=== PATIENT | male | born 1950 | race Caucasian/White ===

== ENCOUNTER 2023-03-18 11:16 | Outpatient (REF) | payer BC, SELFPAY ==
[2023-03-18 17:34] LABS: Hemoglobin A1C 5.1 % (<5.7)
[2023-03-18 17:38] LABS: Calculated LDL 224 mg/dL (<100); Cholesterol 295 mg/dL (<200); HDL Cholesterol 48 mg/dL (40-60); TSH (W/Ref FT4) 1.65 uIU/mL (0.36-3.74); Triglyceride 117 mg/dL (<150)
[2023-03-18 17:52] LABS: Vitamin D 25 Total 14.9 ng/mL (30-100)
== END 2023-03-18 11:17 | disposition home or self-care (01) ==
LOC: NCHCN 11:16
PROVIDERS: Visit Provider Nurse Practitioner Family
DX: R03.0 Elevated blood-pressure reading, without diagnosis of hypertension (principal); R06.00 Dyspnea, unspecified
CPT/HCPCS: 80061; 82306; 83036; 83735; 84443

== ENCOUNTER 2023-04-01 00:56 | Outpatient (CLI) | payer BC, SELFPAY ==
--- NOTE | 2023-04-01 | DI.NM_ITS ---
APPROVED REPORT Conclusion This is a resting myocardial perfusion study. Perfusion appears normal. There is no evidence of jay jay or infarction
== END 2023-04-01 01:16 ==
LOC: DI 00:56
PROVIDERS: Visit Provider Nurse Practitioner Family
DX: R42 Dizziness and giddiness (principal); R06.00 Dyspnea, unspecified; R03.0 Elevated blood-pressure reading, without diagnosis of hypertension; F10.99 Alcohol use, unspecified with unspecified alcohol-induced disorder
CPT/HCPCS: 78451

== ENCOUNTER 2023-04-07 09:42 | Outpatient (CLI) | payer BC, SELFPAY ==
--- NOTE | 2023-04-07 11:20 | DI.US_ITS ---
APPROVED REPORT EXAM: Comprehensive 2D, Doppler, and color-flow Echocardiogram Patient Location: Out-Patient Top Lift Scourer: Rich Grimaldo RDMS, RVT Indications: lightheadedness, dyspnea Other Information Study Quality: Fair Conclusion Normal left ventricular wall thickness and chamber size. Ejection fraction is 55%. There are no seg mental wall motion abnormalities Normal right ventricular size and systolic function Both atria are normal in size Aortic valve is mildly sclerotic and trileaflet without stenosis or regurgitation Estimated right ventricular systolic pressure is 37 mmHg Mildly dilated ascending aorta measuring 3.84 cm Wall motion Left Ventricle The left ventricle is normal size. Left ventricular systolic function is normal There is normal left ventricular wall thickness. There are no segmental wall motion abnormalities There is no ventricular septal defect visualized. LVEF is 55%. Right Ventricle The right ventricle is normal size. Right ventricular systolic function is grossly normal. The RVSP i s 37.4 mmHg. Atria The left atrium size is normal. The right atrium size is normal. The interatrial septum is intact wit h no evidence for an atrial septal defect. Aortic Valve The aortic valve is mildly sclerotic Aortic valve is trileaflet. There is no aortic valvular stenosis . No aortic regurgitation is present. Mitral Valve The mitral valve is normal in structure. No evidence of mitral valve stenosis. Trace mitral regurgita tion. Tricuspid Valve The tricuspid valve is normal in structure. There is no tricuspid valve stenosis. Trace tricuspid reg urgitation. Pulmonic Valve The pulmonary valve is normal in structure. There is no pulmonic valvular stenosis. Mild pulmonic reg urgitation. Great Vessels The aortic root is normal in size. The ascending aorta is mildly dilated. Aortic arch is not well vis ualized. IVC is normal in size and collapses >50% with inspiration. Pericardium There is no pericardial effusion. 2D Dimensions IVSD d PLAX 0.75 cm M: 0.6-1.2 LV Vol A2C d MOD 85.3 mL LVPW d PLAX 0.75 cm M: 0.6 - 1.2 LV Vol A4C d MOD 106.3 mL LVID d PLAX 5.31 cm M: 4.2 - 5.8 LV EF A4C MOD 46.4 % LVDs 4.00 cm M: 2.5 - 4.0 LV EF A2C MOD 50.1 % Ao Root d 3.51 cm M: 3.1 - 3.7 LV EF Biplane MOD 49.1 % Ao Asc Diam d 3.84 cm M: 2.6 - 3.4 SV 50.24 mL LV EF Teichholz 47.5 % SV Index 23.45 mL/m2 LVEF (Gu's) 49.10 % M: 52 - 72 LV Volume 75.04 mL M: 62 - 150 LV Volume Index 35.06 mL/m2 M: 34 - 74 LV Vol Biplane MOD 102.3 mL FS 24.00 % M-Mode TAPSE 2.53 cm (M/F) >1.7 LV Diastology MV E' medial 0.124 (>0.07 m/s) E/A Ratio 1.1 LV E/e MED 7.75 (<14) MV E Vmax 0.96 (0.4-1.3 m/s) MV E' lateral 0.093 (>0.1 m/s) MV A Vmax 0.85 (0.4-1.3 m/s) LV E/e LAT 10.35 (<14) MV E/A Ratio 1.11 MV E/E' medial 7.78 MV E/E' lateral 10.37 Aortic Valve LVOT Area 3.88 cm2 AoV Area Vmax 3.14 cm2 LVOT Vmax 1.20 m/s AoV Area/ BSA (Vmax) 1.46 cm2/m2 LVOT Mean Warner. 0.77 m/s SARA Mean Warner. 2.93 cm2 LVOT Peak Grad 5.8 mmHg SARA Mean Warner. Index 1.37 cm2/m2 LVOT Mean Grad 2.8 mmHg LVOT VTI 0.265 m LVOT Diam s 2.20 cm AoV Vmax 1.49 m/s Velocity Ratio 0.81 AoV Mean Warner. 1.02 m/s AoV Peak Grad 8.8 mmHg LVOT SV 102.90 mL AoV Mean Grad 4.7 mmHg AoV VTI 0.319 m AoV Area VTI 3.23 cm2 AoV Area/ BSA (VTI) 1.51 cm/m2 Mitral Valve MV DT 133 (160-240 msec) MV PHT 38 msec MV Area PHT 5.72 cm2 MV VTI 0.320 m MV Area VTI 3.22 (4.0-6.0 cm2) Pulmonary Valve PV Vmax 1.30 (0.5-1.5 m/s) RVOT Peak Gr. 1.91 mmHg PV Peak Grad 6.8 mmHg RVOT Mean Gr. 1.10 mmHg PV Mean Grad 3.6 mmHg RVOT VTI 0.154 m PV VTI 0.266 m RVOT Vmax 0.69 m/s Tricuspid Valve TR Peak Grad 34.4 mmHg TR Vmax 2.93 m/s RA Pressure 3.00 mmHg RVSP (TR) 37.4 mmHg
== END 2023-04-07 10:02 ==
PROVIDERS: Visit Provider Nurse Practitioner Family
DX: R42 Dizziness and giddiness (principal); R06.00 Dyspnea, unspecified
CPT/HCPCS: 93306

== ENCOUNTER 2023-05-14 15:18 | Outpatient (REF) | payer BC, SELFPAY ==
[2023-05-14 19:04] LABS: ALT 21 U/L (16-63); AST 21 U/L (15-37); Albumin 3.9 g/dL (3.4-5.0); Alkaline Phosphatase 71 U/L (46-116); Anion Gap 9.8 mmol/L (3-11); BUN 27 mg/dL (7-18); Bilirubin, Total 0.5 mg/dL (0.2-1.0); CO2 27.2 mmol/L (21.0-32.0); CREATININE 1.2 mg/dL (0.70-1.30); Calcium 9.2 mg/dL (8.5-10.1); Chloride 101 mmol/L (98-107); Estimated GFR 64.65 (mL/min/1.73m2); Glucose 96 mg/dL (74-106); Potassium 4.5 mmol/L (3.5-5.1); Sodium 138 mmol/L (136-145); Total Protein 7.7 g/dL (6.4-8.2)
== END 2023-05-14 15:19 | disposition home or self-care (01) ==
LOC: NCHCN 15:18
PROVIDERS: Visit Provider Nurse Practitioner Family
DX: I10 Essential (primary) hypertension (principal)
CPT/HCPCS: 80053

== ENCOUNTER → 2023-05-25 00:56 | Outpatient (CLI) | payer BC, SELFPAY ==
--- NOTE | 2023-05-25 | DI.NM_ITS ---
APPROVED REPORT Exam: Exercise Treadmill Patient Location: Out-Patient Room/Bed: Stress Nurse: Jody Wallis RN Ordering Provider:FERMÍN ROSA, Contact Number: [phone] BMI: 32.48 Baseline Rhythm: Sinus Bradycardia Comment: Frequent PAC's and PVC's Indications: Lightheadedness, dyspnea, HTN Medical History Medical History: HLD, HTN, ETOH use, dyspnea, lightheadedness Cardiac Medications: Vitamin D2, rosuvastatin, diazepam, aspirin, naltrexone, atenolol losartan, clor thalidone Allergies: NKA Cardiac Risk Factors: Family hx, HTN, HLD, chewing tobacco Previous Cardiac Procedures: None Pretest Chest Pain Characteristics: 1 chest ache Exercise History: Indeterminate Physical Disabilities: None Lung Sounds: Clear to auscultation Heart Sounds: Regular Stress Test Details Test: Exercise stress testing was performed using a Anirudh protocol. Nuclear Acquisition: Rest Tc-99m/Stress Tc-99m 1 day Rest Isotope: Tc-99m Sestamibi. Dose: 10.5 Date: 05/25/2023 Injection Time: 1105 Stress Isotope: Tc-99m Sestamibi. Dose: 32.0 Date: 05/25/2023 Injection Time: 1240 HR Resting HR Supine: 58 bpm Max Heart Rate (APMHR): 149.640212 bpm Resting HR Standin bpm Target HR (85% APMHR): 126.090624 bpm Max HR Achieved: 143 bpm % of APMHR: 95.97 Recovery HR: 82 bpm HR response to stress: Normal HR response to stress BP Resting BP Supine: 182/90 mmHg Resting BP Standin/80 mmHg Max BP: 190/90 mmHg Recovery BP: 170/90 mmHg BP response to stress: Normal blood pressure response to stress. ECG Resting ECG: Sinus Bradycardia Ectopy: Frequent PAC's and PVC's Stress ECG: Sinus Tachycardia ST Change: No significant ST segment changes noted Arrhythmia: Frequent PAC's and PVC's Recovery ECG: Sinus Rhythm Recovery ST Change: No significant ST segment changes noted Recovery Arrhythmia: Occasional PAC's and PVC's Clinical Reason for Termination: Target HR Achieved, Fatigue Stress Symptoms: 3/10 chest pressure, general fatigue Exercise duration: 04 min59 sec Highest Stage Reached: Stage 2: 2.5 mph at 12% grade. Exercise capacity: 7.03 METs Angina Score: Non-Limiting Noland Treadmill Score: 0.7 Rate Pressure Product: [id number] Stress ECG Conclusion 1. The resting electrocardiogram was within normal limits 2. The patient exercised on a Anirudh protocol completed a workload of 7 METS. Normal heart rate respo nse to exercise. Hypertension was present at rest. The patient achieved 96% of predicted heart rate for age 3. There was no electrocardiographic evidence of myocardial ischemia 4. Atrial and ventricular ectopic beats were noted 5. See MPI report Noland Treadmill Score is 0.7 which is Moderate risk. Stress Test Summary STAGE Time (mins) Speed (mph) Grade (%) HR BP SpO2 SYMPTOMS METS Supine 58 182/90 Standing 75 144/80 1 3 1.7 10 119 178/88 3-4/10 chest pressure, general fatigue 4.5 2 6 2.5 12 143 3-4/10 chest pressure, general fatigue 7 1 min recovery 130 190/90 3-4/10 chest pressure, general fatigue 3 min recovery 85 178/96 6 min recovery 82 170/90 100 All symptoms resolved. MPI Conclusion Myocardial perfusion is normal. There is no ischemia or evidence of prior infarction Ejection fraction is 59%, wall motion is normal Radiologist Interpretation Radiologist agrees with Wax Pot Tender's Interpretation. Radiologist Interpretation by: Riky Munguia MD Interpretation Date/Time: 05/27/2023 18:44:04
== END ==
PROVIDERS: Visit Provider Nurse Practitioner Family
DX: R42 Dizziness and giddiness (principal); R06.00 Dyspnea, unspecified; I10 Essential (primary) hypertension
CPT/HCPCS: 78452; 93017

== ENCOUNTER 2023-10-11 14:58 | Outpatient (REF) | payer BC, SELFPAY ==
[2023-10-11 16:55] LABS: ALT 22 U/L (16-63); AST 18 U/L (15-37); Albumin 3.7 g/dL (3.4-5.0); Alkaline Phosphatase 59 U/L (46-116); Anion Gap 7.5 mmol/L (3-11); BUN 32 mg/dL (7-18); Bilirubin, Total 0.5 mg/dL (0.2-1.0); CO2 27.5 mmol/L (21.0-32.0); CREATININE 1.2 mg/dL (0.70-1.30); Calculated LDL 108 mg/dL (<100); Chloride 104 mmol/L (98-107); Cholesterol 173 mg/dL (<200); Estimated GFR 64.65 (mL/min/1.73m2); Glucose 105 mg/dL (74-106); HDL Cholesterol 49 mg/dL (40-60); Potassium 3.9 mmol/L (3.5-5.1); Sodium 139 mmol/L (136-145); Total Protein 7.5 g/dL (6.4-8.2); Triglyceride 80 mg/dL (<150)
[2023-10-11 17:37] LABS: Vitamin D 25 Total 24.6 ng/mL (30-100)
[2023-10-11 17:49] LABS: Vitamin B12 177 pg/mL (193-986)
== END 2023-10-11 14:59 | disposition home or self-care (01) ==
LOC: NCHCN 14:58
PROVIDERS: PCP Nurse Practitioner Family; Visit Provider Nurse Practitioner Family
DX: Z00.00 Encounter for general adult medical examination without abnormal findings (principal); E55.9 Vitamin D deficiency, unspecified; E78.5 Hyperlipidemia, unspecified; I10 Essential (primary) hypertension; E53.8 Deficiency of other specified B group vitamins
CPT/HCPCS: 80053; 80061; 82306; 82607

== ENCOUNTER 2023-11-01 11:15 | Day surgery (SDC) | payer BC, SELFPAY ==
--- NOTE | 2023-10-31 16:49 | PDOC.DSDIS_ITS ---
Date of service: 11/01/23 Time of Service: 13:07 Discharge Plan Disposition Patient Disposition: Home Condition: Good Discharge Details Reason For Visit: screening colonoscopy after positive cologuard Attending Provider: Ronnie Sepulveda Primary Care Provider: Taryn Nichole Home Meds and New Rx's Prescriptions: Continued aspirin 81 mg tablet,delayed release (DR/EC) 81 mg PO DAILY cholecalciferol (vitamin D3) 50 mcg (2,000 unit) capsule 50 mcg PO DAILY chlorthalidone 25 mg tablet 25 mg PO DAILY rosuvastatin 40 mg tablet 40 mg PO DAILY losartan 50 mg tablet 50 mg PO DAILY vitamin [id number] B1 1,000-100 mg/mL solution IM .weekly Discontinued polyethylene glycol 3350 17 gram/dose powder 238 g PO ONCE Qty: 238 0RF Rx Instructions: take per colonoscopy instructions bisacodyl [Dulcolax (bisacodyl)] 5 mg tablet,delayed release (DR/EC) 5 mg PO ONCE Qty: 4 0RF Rx Instructions: take per colonoscopy instructions Discharge Instructions Instructions: Colorectal Polyps (GEN) Additional Instructions: Santos, we were able to complete your colonoscopy today without any difficulty. There is a large mass in your cecum, which is the first part of your large intestine or colon. It is right where the small intestine connects in. It looks like a large mass of polyps. It is too big to remove with the colonoscope. I did perform several biopsies of it to test for cancer, but ultimately, this will need to come out with surgery. I found 2 other polyps in your colon as well. Both of these were quite small, and I removed them completely. Incidentally, he also have some diverticulosis. These are weak spots in the colon wall that typically accumulate as we age. At the present time, I do not think it has anything to worry about, and I think prioritizing the mass in the cecum is of the most importance. I have taken the liberty of scheduling a follow-up appointment my office on the at 11:45 in the morning. I hope to have the results of the biopsies at that point, we can discuss this in more detail and make a plan together. If you have any questions in the meantime, please do not hesitate to call at any point. 1. If tolerated, consume a soft, low fiber diet for 1-2 days. 2. Do not drive, drink alcohol, operate machinery, make critical decisions, or do activities that require coordination or balance for 24 hours. 3. Because air was put into your colon during the procedure, expelling air from your rectum (passing gas or farting) is normal. 4. You may not have a bowel movement for 1-3 days because of the colonoscopy p rep. This is normal. 5. Go directly to the emergency room if you notice any of the following: Develop chills (warm to touch), or if you have a thermometer and your temperature is above 101 Difficulty breathing or difficultly swallowing Persistent vomiting Severe abdominal pain, other than gas cramps Severe chest pain Black, tarry stools Any bleeding ? exceeding one tablespoon 6. Call your physician if the site where your intravenous was started becomes red, swollen, painful, and warm to touch. 7. Your physician has reviewed your pre-procedure medications. Please continue to take those medications as previously ordered. You will be given specific information/education regarding any changes to your medications before leaving. Activity:: Activity as Tolerated Diet:: As Tolerated Discharge Orders Discharge Orders: Discharge Order (Routine); Ordered 10/31/23 Ordered By: Ronnie Sepulveda DS: Diagnosis Discharge Diagnosis (1) Positive colorectal cancer screening using Cologuard test: Status: Acute Asessment and Plan: Outpatient follow-up and pathology review
--- NOTE | 2023-10-31 16:50 | W.COLOREPORT ---
Date of service: 11/01/23 Time of Service: 13:11 Colonoscopy Report Date of procedure: 11/01/23 Pre-op diagnosis general: positive cologuard test Post-op diagnosis procedure note: other (Diverticulosis, large cecal polypoid mass unresectable by colonoscopy, 0.25 cm polyp at 20 cm, 0.25 cm polyp at 15 cm) Procedure: Colonoscopy Surgeon: Ronnie Sepulveda Anesthesia Type: General:No Airway Estimated blood loss (mL): 10 Pathology: other (Biopsies of cecal polypoid mass, 0.25 cm polyp at 20 cm, 0.25 cm polyp at 15 cm) Complications: None Disposition: same day Indications: Santos is a 73 year old man with a positive cologuard test. He needs a follow up screening colonoscopy Prep: Miralax/Dulcolax Procedure Start Time: 12:42 Procedure End Time: 13:13 Retraction Time: 12 Findings: Polypoid mass in the cecum, diverticulosis, 0.25 cm polyp at 20 cm, 0.25 cm polyp at 15 cm Procedure Description: After the induction of anesthesia, and with the patient in left lateral decubitus position, I began by performing an external anorectal exam.? Perineum and skin were normal, as was the anal verge.? There was no evidence of external hemorrhoids.? Next, I performed a digital rectal exam.? I did not appreciate any abnormal findings.? Next, I advanced a colonoscope into the rectal vault.? I performed retroflexion.? This was normal.? At the upper portion of the rectum at 15 and 20 cm were 2 polyps. Each polyp was less than 0.25 cm. Each polyp was flat, and I removed these both with cold forceps. There was minimal bleeding. Using insufflation, I then advanced the colonoscope beyond the rectal folds and into the sigmoid colon before advancing towards the cecum.? There was sigmoid diverticulosis. The scope was noted to be in the cecum by identification of the ileocecal valve and appendiceal orifice.? Just adjacent to the ileocecal valve was a flat polypoid mass. In its greatest dimension it was probably in excess of 4 cm. This is not amenable to colonoscopic resection. I did perform several biopsies of it using cold forceps in an effort to obtain some tissue diagnosis. There was minimal bleeding. I then began withdrawing the colonoscope using repeated irrigation as necessary for full evaluation of the colonic mucosa. ?Once the scope was withdrawn to the level of the rectum, great care was taken to examine portions of the rectal folds.? Finally, the scope was withdrawn and the patient was brought to the same-day surgery recovery unit as the anesthetic wore off. ?The findings and instructions were shared with the patient prior to discharge. [place] Bowel Prep [place] Bowel Prep Right Colon: 3 Left Colon: 3 Transverse Colon: 3 Total Score: 9
[2023-11-01 11:41] VITALS: BP 120/80; PULSE 89; RESP 18; TEMP 36.4; O2SAT 99
--- NOTE | 2023-11-01 12:13 | ANES.PREOP_ITS ---
General Info Date of Service Date Performed: 11/01/23 Height: 5 ft 8 in Weight: 93.6 kg Body Mass Index (BMI): 31.4 Surgical Procedure: Operation Date: 11/01/23 13:05 Proposed Procedure Side Surgeon tashia Sepulveda MD Meds Allergies and Home Medications Allergies Allergy/AdvReac Type Severity Reaction Status Date / Time naltrexone Allergy Severe Lightheaded Verified 11/01/23 11:40 Home Medication Medication Instructions Recorded aspirin 81 mg tablet,delayed 81 mg PO DAILY 10/26/23 release chlorthalidone 25 mg tablet 25 mg PO DAILY 10/26/23 cholecalciferol (vitamin D3) 50 50 mcg PO DAILY 10/26/23 mcg (2,000 unit) capsule rosuvastatin 40 mg tablet 40 mg PO DAILY 10/26/23 losartan 50 mg tablet 50 mg PO DAILY 10/27/23 vitamin Z02-unyaids B1 1,000 ml IM .weekly 10/27/23 mcg-100 mg/mL injection solution Current Visit Medications: Current Medications Generic Name Dose Route Start Last Admin Trade Name Freq PRN Reason Stop Dose Admin Hyoscyamine Sulfate 0.125 mg 10/31/23 16:51 Hyoscyamine 0.125 Mg Sl/Oral/Chew SL 11/30/23 16:50 DIRECTED PRN Ringer's Solution 1,000 mls @ 80 mls/hr 11/01/23 06:00 IV 11/01/23 23:59 INFUSION TONIO IV Miscellaneous Supplies 1 each 11/01/23 06:00 Iv Access IV 11/01/23 23:59 DIRECTED TONIO Ondansetron HCl 4 mg 10/31/23 16:51 Ondansetron 4 Mg/2 Ml Vial IVP 11/30/23 16:50 Q4H PRN PRN Nausea / Vomiting Sodium Chloride 0 ml 11/01/23 06:00 Normal Saline Flush 10 Ml Syr IV 11/01/23 23:59 PRN PRN Sodium Chloride 0 ml 11/01/23 06:00 Normal Saline 10 Ml Vial IJ 11/01/23 23:59 DIRECTED PRN Sterile Water 0 ml 11/01/23 06:00 Water,Injection,Sterile 10 Ml Vial IJ 11/01/23 23:59 DIRECTED PRN PFSH Active Problems Active Problems: Problem Status Onset Code Positive colorectal cancer screening using Cologuard test ~09/2023 R19.5 Snoring R06.83 Essential hypertension I10 Hyperlipidemia E78.5 Alcohol abuse F10.10 Vitamin D3 deficiency E55.9 Cobalamin deficiency E53.8 Medical History Medical History Dizziness and giddiness Dyspnea Tobacco Smoking/Tobacco Use Status: Current every day Tobacco Type: smokeless tobacco Alcohol Alcohol Intake: current Alcohol intake frequency: 0-2 drinks per day Alcohol type: hard liquor Substance Use Substance use: Never Substance use type: does not use Details: pt chews tobacco daily, denies use today 11/01/23. last chew T-2 Vital Signs and Lab Results Vital Signs Most Recent Vital Signs in EMR: Most Recent Vital Signs Temp Pulse Resp BP Pulse Ox 36.4 C L 89 18 120/80 99 11/01/23 11:41 11/01/23 11:41 11/01/23 11:41 11/01/23 11:41 11/01/23 11:41 Lab Results Blood Type / Crossmatch: 2 No Data to Display Complete Blood Count: 2 No Data to Display Complete Metabolic Panel: 2 Sodium 139 mmol/L (136-145) 10/11/23 09:10 Potassium 3.9 mmol/L (3.5-5.1) 10/11/23 09:10 Chloride 104 mmol/L (98-107) 10/11/23 09:10 Carbon Dioxide 27.5 mmol/L (21.0-32.0) 10/11/23 09:10 BUN 32 mg/dL (7-18) H 10/11/23 09:10 Creatinine 1.2 mg/dL (0.70-1.30) 10/11/23 09:10 Est GFR (CKD-EPI 2020) 64.65 (mL/min/1.73m2) 10/11/23 09:10 Calcium 9.0 mg/dL (8.5-10.1) 10/11/23 09:10 Albumin 3.7 g/dL (3.4-5.0) 10/11/23 09:10 Glucose 105 mg/dL (74-106) 10/11/23 09:10 Liver Function Panel: 2 Alanine Aminotransferase (ALT/SGPT) 22 U/L (16-63) 10/11/23 09: 10 Aspartate Amino Transf (AST/SGOT) 18 U/L (15-37) 10/11/23 09:10 Coagulation Panel: 2 No Data to Display Cardiac Panel: 2 No Data to Display Arterial Blood Gas: 2 No Data to Display Venous Blood Gas: 2 No Data to Display Pancreas Panel: 2 No Data to Display Thyroid Panel: 2 No Data to Display Infectious Disease: 2 No Data to Display Blood Cultures: 2 No Data to Display Toxicology Panel: 2 No Data to Display Imaging and Studies Imaging and Studies Study information below may be from another EMR and interpreted by another provider. Please see original notes in EMR for more complete details. Stress Test Summary: Patient Name: Santos Chavez Unit #: [id number] Loc: Ordering Provider: Taryn Nichole Status: REG I Primary Care Provider: Date of Exam: 05/25/23 Sex: M Admission Date: 05/25/23 : 1950 Age: 73 APPROVED REPORT Exam: Exercise Treadmill Patient Location: Out-Patient Room/Bed: Stress Nurse: Jody Wallis RN Ordering Provider:TARYN NICHOLE, Contact Number: [phone] BMI: 32.48 Baseline Rhythm: Sinus Bradycardia Comment: Frequent PAC's and PVC's Indications: Lightheadedness, dyspnea, HTN Medical History Medical History: HLD, HTN, ETOH use, dyspnea, lightheadedness Cardiac Medications: Vitamin D2, rosuvastatin, diazepam, aspirin, naltrexone, atenolol losartan, clorthalidone Allergies: NKA Cardiac Risk Factors: Family hx, HTN, HLD, chewing tobacco Previous Cardiac Procedures: None Pretest Chest Pain Characteristics: 09/29 chest ache Exercise History: Indeterminate Physical Disabilities: None Lung Sounds: Clear to auscultation Heart Sounds: Regular Stress Test Details Test: Exercise stress testing was performed using a Anirudh protocol. Nuclear Acquisition: Rest Tc-99m/Stress Tc-99m 1 day Rest Isotope: Tc-99m Sestamibi. Dose: 10.5 Date: 05/25/2023 Injection Time: 1105 Stress Isotope: Tc-99m Sestamibi. Dose: 32.0 Date: 05/25/2023 Injection Time: 1240 HR Resting HR Supine: 58 bpmMax Heart Rate (APMHR): 149.636374 bpm Resting HR Standin bpmTarget HR (85% APMHR): 126.332132 bpm Max HR Achieved: 143 bpm % of APMHR: 95.97 Recovery HR: 82 bpm HR response to stress: Normal HR response to stress BP Resting BP Supine: 182/90 mmHg Resting BP Standin/80 mmHg Max BP: 190/90 mmHg Recovery BP: 170/90 mmHg BP response to stress: Normal blood pressure response to stress. ECG Resting ECG: Sinus Bradycardia Ectopy: Frequent PAC's and PVC's Stress ECG: Sinus Tachycardia ST Change: No significant ST segment changes noted Arrhythmia: Frequent PAC's and PVC's Recovery ECG: Sinus Rhythm Recovery ST Change: No significant ST segment changes noted Recovery Arrhythmia: Occasional PAC's and PVC's Clinical Reason for Termination: Target HR Achieved, Fatigue Stress Symptoms: 3/10 chest pressure, general fatigue Exercise duration: 04 min59 sec Highest Stage Reached: Stage 2: 2.5 mph at 12% grade. Exercise capacity: 7.03 METs Angina Score: Non-Limiting Noland Treadmill Score: 0.7 Rate Pressure Product: 09331 Stress ECG Conclusion 1. The resting electrocardiogram was within normal limits 2. The patient exercised on a Anirudh protocol completed a workload of 7 METS. Normal heart rate response to exercise. Hypertension was present at rest. The patient achieved 96% of predicted heart rate for age 3. There was no electrocardiographic evidence of myocardial ischemia 4. Atrial and ventricular ectopic beats were noted 5. See MPI report Noland Treadmill Score is 0.7 which is Moderate risk. Stress Test Summary STAGETime (mins)Speed (mph)Grade (%)[id number] Nnxtzd00604/90 Miubwgge06065/80 131.399061676/883-4/10 chest pressure, general fatigue4.5 321.5662748-4/10 chest pressure, general fatigue7 1 min uswwoxgn445625/903-4/10 chest pressure, general fatigue 3 min tjpfglsg13588/96 6 min qlfmpdke52925/01072Gnq symptoms resolved. MPI Conclusion Myocardial perfusion is normal. There is no ischemia or evidence of prior infarction Ejection fraction is 59%, wall motion is normal Radiologist Interpretation Radiologist agrees with Balancing Machine Set Up Worker's Interpretation. Radiologist Interpretation by: Riky Munguia MD Interpretation Date/Time: 05/27/2023 18:44:04 Ordered By: Taryn Nichole CC: AKIRA OM,MATT Dictated By: Bharti May M.D. 05/25/23 1324 <Electronically signed by Bharti May M.D. in OV> 05/28/23 0805 Transcribed By: Bharti May MD This is privileged, confidential information intended only for the provider named. Any use or distribution by any person other than this provider is strictly prohibited. If you receive this report in error, please notify us immediately at [phone] and return the original report to us at the address above. Thank-you. Echocardiogram Summary: Patient Name: Santos Chavez Unit #: [id number] Loc: DI Ordering Provider: Taryn Nichole Status: [facility] Primary Care Provider: Unknown,Unknown Date of Exam: 04/07/23 Sex: M Admission Date: 04/07/23 : 1950 Age: 73 APPROVED REPORT EXAM: Comprehensive 2D, Doppler, and color-flow Echocardiogram Patient Location: Out-Patient Wound Care Specialist: Rich Grimaldo RDMS, T Indications: lightheadedness, dyspnea Other Information Study Quality: Fair Conclusion Normal left ventricular wall thickness and chamber size. Ejection fraction is 55%. There are no segmental wall motion abnormalities Normal right ventricular size and systolic function Both atria are normal in size Aortic valve is mildly sclerotic and trileaflet without stenosis or regurgitation Estimated right ventricular systolic pressure is 37 mmHg Mildly dilated ascending aorta measuring 3.84 cm Wall motion Left Ventricle The left ventricle is normal size. Left ventricular systolic function is normal There is normal left ventricular wall thickness. There are no segmental wall motion abnormalities There is no ventricular septal defect visualized. LVEF is 55%. Right Ventricle The right ventricle is normal size. Right ventricular systolic function is grossly normal. The RVSP is 37.4 mmHg. Atria The left atrium size is normal. The right atrium size is normal. The interatrial septum is intact with no evidence for an atrial septal defect. Aortic Valve The aortic valve is mildly sclerotic Aortic valve is trileaflet. There is no aortic valvular stenosis. No aortic regurgitation is present. Mitral Valve The mitral valve is normal in structure. No evidence of mitral valve stenosis. Trace mitral regurgitation. Tricuspid Valve The tricuspid valve is normal in structure. There is no tricuspid valve stenosis. Trace tricuspid regurgitation. Pulmonic Valve The pulmonary valve is normal in structure. There is no pulmonic valvular stenosis. Mild pulmonic regurgitation. Great Vessels The aortic root is normal in size. The ascending aorta is mildly dilated. Aortic arch is not well visualized. IVC is normal in size and collapses >50% with inspiration. Pericardium There is no pericardial effusion. 2D Dimensions IVSD d PLAX 0.75 cm M: 0.6-1.2LV Vol A2C d MOD 85.3 mL LVPW d PLAX 0.75 cm M: 0.6 - 1.2LV Vol A4C d MOD 106.3 mL LVID d PLAX 5.31 cm M: 4.2 - 5.8LV EF A4C MOD 46.4 % LVDs 4.00 cm M: 2.5 - 4.0LV EF A2C MOD 50.1 % Ao Root d 3.51 cm M: 3.1 - 3.7LV EF Biplane MOD 49.1 % Ao Asc Diam d 3.84 cm M: 2.6 - 3.4SV50.24 mL LV EF Teichholz 47.5 %SV Index23.45 mL/m2 LVEF (Gu's)49.10 % M: 52 - 72 LV Bhjvxx17.04 mL M: 62 - 150 LV Volume Index35.06 mL/m2 M: 34 - 74 LV Vol Biplane MOD 102.3 mL FS24.00 % M-Mode TAPSE 2.53 cm (M/F) >1.7 LV Diastology MV E' medial0.124 (>0.07 m/s)E/A Ratio 1.1 LV E/e MED7.75 (<14)MV E Vmax 0.96 (0.4-1.3 m/s) MV E' lateral0.093 (>0.1 m/s)MV A Vmax 0.85 (0.4-1.3 m/s) LV E/e LAT10.35 (<14)MV E/A Ratio 1.11 MV E/E' medial 7.78 MV E/E' .37 Aortic Valve LVOT Area3.88 cm2AoV Area Vmax3.14 cm2 LVOT Vmax 1.20 m/sAoV Area/ BSA (Vmax)1.46 cm2/m2 LVOT Mean Warner.0.77 m/sAVA Mean Warner.2.93 cm2 LVOT Peak Grad 5.8 mmHgAVA Mean Warner. Index1.37 cm2/m2 LVOT Mean Grad 2.8 mmHg LVOT VTI0.265 m LVOT Diam s 2.20 cm AoV Vmax1.49 m/s Velocity Ratio 0.81 AoV Mean Warner.1.02 m/s AoV Peak Grad8.8 mmHg LVOT SV 102.90 mL AoV Mean Grad4.7 mmHg AoV VTI0.319 m AoV Area VTI3.23 cm2 AoV Area/ BSA (VTI)1.51 cm/m2 Mitral Valve MV DT 133 (160-240 msec) MV PHT38 msec MV Area PHT 5.72 cm2 MV VTI 0.320 m MV Area VTI 3.22 (4.0-6.0 cm2) Pulmonary Valve PV Vmax 1.30 (0.5-1.5 m/s)RVOT Peak Gr.1.91 mmHg PV Peak Grad 6.8 mmHgRVOT Mean Gr.1.10 mmHg PV Mean Grad 3.6 mmHgRVOT VTI0.154 m PV VTI 0.266 mRVOT Vmax 0.69 m/s Tricuspid Valve TR Peak Grad 34.4 mmHgTR Vmax 2.93 m/s RA Pressure 3.00 mmHg RVSP (TR) 37.4 mmHg Ordered By: Taryn Nichole CC: Dictated By: Bharti May M.D. 04/07/23 1256 <Electronically signed by Bharti May M.D. in OV> 04/08/23 4976 Transcribed By: Bharti May MD This is privileged, confidential information intended only for the provider named. Any use or distribution by any person other than this provider is strictly prohibited. If you receive this report in error, please notify us immediately at [phone] and return the original report to us at the address above. Thank-you. Carotid Artery Summary:: Patient Name: Santos Chavez Unit #: [id number] Loc: Ordering Provider: Taryn Nichole Status: REG CLI Primary Care Provider: Date of Exam: 06/15/23 Sex: M Admission Date: 06/15/23 : 1950 Age: 73 Exam(s) US CAROTID EXAM: US CAROTID CLINICAL HISTORY: LIGHTHEADEDNESS,R42, FAMILY H/O CAROTID ARTERY STENOSIS. TECHNIQUE: Ultrasound carotids performed using grayscale, color-flow, and spectral Doppler imaging. COMPARISON: No exams were available for comparison FINDINGS: RIGHT CAROTID ARTERY: Plaque: Mild calcific plaque is seen in the carotid bulb and proximal right ICA. Velocity elevation: None. LEFT CAROTID ARTERY: Plaque: Mild calcific plaque is seen in the carotid bulb and proximal left ICA. Velocity elevation: None. VERTEBRAL ARTERIES: Antegrade flow. Measurements: R Bulb: 56.9cm/s PS / 15.4cm/s ED R CCA: 86.7cm/s PS / 21.9cm/s ED R ECA: 100.9cm/s PS / 14.1cm/s ED R ICA Prox: 102cm/s PS / 25.4cm/s ED R ICA Mid: 114.8cm/s PS / 25.4cm/s ED R ICA Distal: 92.4cm/s PS /25.2cm/s ED R Vert: 45cm/s PS / 15.3cm/s ED R SVR: 1.3 R DVR: 1.2 L Bulb: 54.4cm/s PS / 13.2cm/s ED L CCA: 93cm/s PS / 20.7cm/s ED L ECA: 81.1cm/s PS / 13.2cm/s ED L ICA Prox: 80.1cm/s PS / 21.7cm/s ED L ICA Mid: 94.7cm/s PS / 29cm/s ED L ICA Distal: 86.9cm/s PS / 26.8cm/s ED L Vert: 47.1cm/s PS / 15.6cm/s ED L SVR: 1 L DVR: 1.4 IMPRESSION: No evidence for hemodynamically significant carotid stenosis. Criteria for Carotid Stenosis: Normal: ICA PSV <125 cm/s no plaque or intimal thickening is visible. <50% stenosis: ICA PSV <125 cm/s and plaque or intimal thickening is visible. 50-69% stenosis: ICA PSV is 125-250 cm/s and plaque is visible. >70% stenosis to near occlusion: ICA PSV >250 cm/s with visible plaque and luminal narrowing. DATA REPOSITORY: Ordered By: Taryn Nichole CC: Dictated By: Yefri Sepulveda M.D. 06/15/23921 <Electronically signed by Yefri Sepulveda M.D. in OV> 06/15/23921 Transcribed By: Yefri Sepulveda This is privileged, confidential information intended only for the provider named. Any use or distribution by any person other than this provider is strictly prohibited. If you receive this report in error, please notify us immediately at [phone] and return the original report to us at the address above. Thank-you. Anesthesia Assessment and Plan Anesthesia History Personal History: No History of Anesthesia Complications Family History: No Family History of Anesthesia Complications Exercise Tolerance Exercise Tolerance: Metabolic Equivalents>4 Pertinent Negatives Pertinent Negatives: No Symptoms of GERD, No Major Pulmonary Symptoms or Complaints and No History of CVA/TIA Cardiac & Pulmonary Exam Cardiac Exam: Normal S1/S2 Heart Sounds Pulmonary Exam: Clear Bilateral Breath Sounds Implantable Cardiac Device Does patient have a Pacemaker or an ICD?: No Airway Exam Known Difficult Airway: No Mallampati Class: 2 Mouth Opening: Normal (> 3cm) Thyromental Distance: Greater than 3 cm Neck Range of Motion: Full ROM Neck Circumference: Normal Teeth Condition: Generalized Poor Dentition and Loose or Chipped Tooth Numberin 1. Missing one per patient 2. Missing one per patient 3. Missing three per patient ASA Classification ASA Score: ASA 2 Emergency Case?: No NPO Status NPO Status: NPO Clears >2 hours, Solids >8 hours Anesthesia Plan Resuscitation Status: Full Code Anesthesia Technique: General Anesthesia Airway Planned: Natural Airway Monitors Used: Standard Monitors Preoperative Comments:: Patient reports regular Alcohol, has not had alcohol for the past two days. Questionable bradycardia this preop visit, did not capture on EKG. Patient now in sinus rhythm.
[2023-11-01] MEDS: Lactated Ringers 1,000 ML 80 ML IV (12:15)
[2023-11-01 12:38] VITALS: BMI 31.4
--- NOTE | 2023-11-01 12:50 | BOWEL_PTH ---
PATIENT: Santos Chavez LOC: [facility] U#:[id number] AGE/SX: 73/M ROOM: RE11/01/[address]: Ronnie Sepulveda MD : 1950 BED: DIS: 11/01/2023 SPEC #: [id number] RECD: 11/01/23 17:53 STATUS: BRIANA RE #: [id number] SUNDAY: 11/01/23 12:[address]: Ronnie Sepulveda DEPT: Surgical Specimen RECD BY: Ondina Ayala ENTERED: 11/01/23 17:53 SP TYPE: Bowel OTHR DR: Taryn Nichole Tissues: 1 - BIOPSY BOWEL 2 - BIOPSY BOWEL 3 - BIOPSY BOWEL Procedures: GROSS AND MICRO LEVEL 4 Comments: [id number]
[2023-11-01 13:05] VITALS: BP 100/69; PULSE 59; RESP 16; TEMP 36.6; O2SAT 97
[2023-11-01 13:30] VITALS: BP 105/74; PULSE 57; RESP 18; TEMP 36.5; O2SAT 100
--- NOTE | 2023-11-01 13:38 | W.ANESPOSTOP ---
Postoperative Evaluation Date, Time and Location Date Performed: 11/01/23 Time Performed: 13:38 Patient Location: Day Surgery Unit Vital Signs Most Recent Imported Vital Signs: Most Recent Vital Signs Temp Pulse Resp BP Pulse Ox 36.5 C 57 L 18 105/74 100 11/01/23 13:30 11/01/23 13:30 11/01/23 13:30 11/01/23 13:30 11/01/23 13:30 Pain Score Most Recent Pain Score: Most Recent Pain Score Pain Level 0 11/01/23 13:30 Assessment Mental Status: Awake (Alert & Oriented to Patient Baseline) Airway and Respiratory Function: Patent airway with normal (patient baseline) respiratory exam Cardiovascular Function: Hemodynamically Stable Hydration Status: Adequately Hydrated Nausea & Vomiting: No Nausea or Vomiting Pain: Pt. Denies Any Pain Peripheral Nerve Block: Patient did not receive a nerve block
== END 2023-11-01 14:04 | disposition home or self-care (01) ==
LOC: SUR 11:15
PROVIDERS: PCP Nurse Practitioner Family; Visit Provider Surgery
PROC: 0DJD8ZZ Inspection of Lower Intestinal Tract, Via Natural or Artificial Opening Endoscopic (ICD-10-PCS; CPT 45378; principal; 2023-11-01 13:00)
DX: K63.5 Polyp of colon (principal); Z12.11 Encounter for screening for malignant neoplasm of colon; K57.30 Diverticulosis of large intestine without perforation or abscess without bleeding; K63.89 Other specified diseases of intestine; R19.5 Other fecal abnormalities; I10 Essential (primary) hypertension; E78.5 Hyperlipidemia, unspecified; F10.11 Alcohol abuse, in remission
CPT/HCPCS: 45380; 88305; J2371; J2704

== ENCOUNTER 2023-12-16 19:04 | Outpatient (REF) | payer BC, SELFPAY ==
[2023-12-16 19:47] LABS: Vitamin B12 943 pg/mL (193-986)
== END 2023-12-16 19:05 | disposition home or self-care (01) ==
LOC: NCHCN 19:04
PROVIDERS: PCP Nurse Practitioner Family; Referring Provider Nurse Practitioner Family; Visit Provider Nurse Practitioner Family
DX: E53.8 Deficiency of other specified B group vitamins (principal)
CPT/HCPCS: 82607

== ENCOUNTER 2023-12-31 06:02 | Inpatient (IN) | payer MEDICARE, BC, SELFPAY ==
--- NOTE | 2023-12-30 15:56 | ROE_ITS ---
Date of service: 12/31/23 Time of Service: 11:38 Operative Note Operative Note DATE OF PROCEDURE: 12/31/23 PRE-OP DIAGNOSIS: Adenomatous colon polyp POST-OP DIAGNOSIS: same PROCEDURE: Laparoscopic right hemicolectomy SURGEON: Ronnie Sepulveda [facility]AT[facility] [employer] SUPERVISOR: Sarah Willis ANESTHESIA TYPE: Local By Surgeon and General LMA/ETT Refer to Anesthesia Record ESTIMATED BLOOD LOSS: 50 PATHOLOGY: other (Right colon) COMPLICATIONS: None Patient was transported to: PACU Patient's condition: stable Indications: Santos is a 73-year-old male who underwent screening colonoscopy and was found to have a adenomatous polyp in the cecum. The size of the polyp precluded colonoscopic resection, and I recommended laparoscopic right hemicolectomy in the case that there might be cancer within the specimen. Findings: No evidence of any type of carcinomatosis or metastatic colon cancer. Normal-appearing ascending colon. Procedure Description: After the induction of general endotracheal anesthesia, and insertion of appropriate intravenous access and intra-arterial blood pressure monitoring, a Mosher urinary catheter was inserted with aseptic technique. Next, I prepped and draped the anterior abdominal wall in the usual fashion. I started with a midline supraumbilical incision. I dissected down to the fascia which was grasped with Wong clamps, and elevated into the operative field. It was opened, 12 mm Fields port was placed in this position, and the peritoneal cavity was then insufflated. A 5 mm 30 degree scope was inserted, and there was no evidence of any kind of injury created upon entry. Peritoneal cavity was assessed. It appeared normal. Liver appeared as anticipated. I did not see any evidence that would support any type of diagnosis of carcinomatosis, and it seems very reasonable to proceed with the planned operation. Next, I placed a 5 mm port in the suprapubic position, as well as the left lower quadrant. This was all done under the direct vision of the laparoscope. The patient was then placed in the Trendelenburg positioning, with the left side down. I divided the obliterated umbilical vein and falciform ligament. This allowed me to retract the greater omentum up over the liver. The small bowel was then swept towards the left side, exposing the underlying mesocolon. The cecum was then grasped, lifted, and retracted slightly laterally. I scored the mesentery and dissected out the ileocolic vessels. These were skeletonized, and divided high to the origin with the LigaSure device between double clips on each side. I dissected down to the sweep of the duodenum, which was gently retracted posteriorly. Dissection was continued towards the right side, and the hepatic flexure, taking great care to elevate the posterior leaflet of the ascending mesocolon off of the retroperitoneum. All retroperitoneal structures were kept in situ. Once the underside of the ascending colon was dissected free, I turned my attention towards dissection and division of the transverse mesocolon. Using the LigaSure, I divided towards the transverse mesocolon. The right colic artery and vein were dissected, skeletonized, and divided close to the origin between double clips on each side with the LigaSure. This dissection was continued up parallel to the middle colic artery to the level of the transverse colon. Next, I divided the transverse colon with a double fire of a Endo KAMI stapler using a purple load. I then turned my attention towards the division of the terminal ileum. Suitable position was identified proximal to the fold of Treves. And I divided the ileum with another fire of the KAMI stapler. Once this was complete, use a LigaSure device to completely mobilize the specimen off of the right lateral sidewall. Once this was complete, we removed the camera, as well as the umbilical port, and open the midline cephalad to the umbilical port extending it several centimeters. A wound protector was then placed, and the specimen was extracted. It was passed off the field labeled right colon. Next, I brought the ileum up into the field. Great care was taken to ensure that the mesentery was appropriately oriented, and there was no bowel twisted across it. Similarly, the transverse colon was delivered up to the field, and the 2 were approximated. It appeared that a antiperistaltic ahry-pn-pugd stapled anastomosis would be most suitable. A small amount of fat was dissected off the antimesenteric side of the transverse colon. The 2 portions of bowel were aligned. I created a colotomy and enterotomy, and matured the anastomosis with an 80 mm KAMI blue stapler. The enterocolostomy appeared healthy, and there was no tension on it. The common entoro-colotomy was then closed with a running 3-0 PDS suture, and interrupted [place] silk sutures on the serosa. The marimar stomosis was then dropped back into the peritoneum. I took a minute to ensure appropriate orientation of the bowel, and then drop to the remaining greater omentum down over the hollow viscera. The midline incision was closed using a running 2-0 PDS suture. The overlying skin and soft tissues were irrigated. A generous field block was established with Exparel and local anesthetic. Deep tissues were closed with interrupted Vicryl stitches, and the midline incision as well as the two 5 mm port sites that were remaining were closed with running subcuticular stitches. Band-Aids were applied, the patient was allowed awaken from anesthesia and transferred to the recovery unit.
--- NOTE | 2023-12-30 15:56 | HPE_ITS ---
Assessment and Plan Assessment and plan (1) Tubular adenoma: Status: Acute Assessment and plan: We reviewed the plan for laparoscopic right hemicolectomy once again today. We reviewed what to expect in terms of the nature of the procedure, and possible complications. He was able to provide informed consent, and we can proceed as planned. History of Present Illness History of Present Illness Chief Complaint: Tubular adenoma of the colon Narrative: Santos is 73 years old. He underwent screening colonoscopy in October of this year, and was diagnosed with a cecal polyp that was too large to be resected colonoscopically. Pathology was consistent with tubular adenoma. He was offered referral to another endoscopist, or laparoscopic right hemicolectomy for definitive treatment. We talked about the risks and benefits of both options, and he elected to proceed with right hemicolectomy. Since his last office visi t, there have been no other major significant changes in his past medical history or interval physical exam. PFSH All Active Problems Tubular adenoma (Acute) Positive colorectal cancer screening using Cologuard test (Acute ~09/2023) On referral Snoring (Acute) Essential hypertension (Acute) Hyperlipidemia (Acute) Alcohol abuse (Chronic) Vitamin D3 deficiency (Acute) Cobalamin deficiency (Acute) Medical History Dizziness and giddiness Dyspnea Surgical History History of colonoscopy (~10/2023) Family History (Updated 10/13/23 @ 13:18 by Kya Keene RN, RN) Father Myocardial infarction Mother A-fib Carotid artery stenosis Social History (Updated 10/13/23 @ 13:19 by Kya Keene RN, RN) Smoking/Tobacco Use Status: Current every day Tobacco Type: smokeless tobacco Smoking risk assessment performed?: Yes Alcohol Intake: current Alcohol Intake frequency: 0-2 drinks per day Alcohol type: hard liquor Drug use: Never Substance use type: does not use Details: pt chews tobacco daily- hasn't used since yesterday 12/30/23 in the afternoon. Housing: house Do you feel safe at home: Yes Do you feel safe in your relationship?: Yes Meds Allergies and Home Medications Allergies Allergy/AdvReac Type Severity Reaction Status Date / Time naltrexone Allergy Severe Lightheaded Verified 12/31/23 06:15 Home Medications Medication Instructions Recorded Confirmed Type aspirin 81 mg tablet,delayed 81 mg PO DAILY 10/26/23 12/29/23 History release chlorthalidone 25 mg tablet 25 mg PO DAILY 10/26/23 12/31/23 History cholecalciferol (vitamin D3) 50 50 mcg PO DAILY 10/26/23 12/29/23 History mcg (2,000 unit) capsule rosuvastatin 40 mg tablet 40 mg PO DAILY 10/26/23 12/31/23 History losartan 50 mg tablet 50 mg PO DAILY 10/27/23 12/31/23 History vitamin X41-hknwtpv B1 1,000 ml IM .weekly 10/27/23 11/10/23 History mcg-100 mg/mL injection solution bisacodyl 5 mg tablet,delayed 5 mg PO ONCE colonscopy bowel prep 11/22/23 12/29/23 Rx release (Dulcolax (bisacodyl)) #8 tabs metronidazole 500 mg tablet 500 mg PO .COMPLEX #8 tabs 11/22/23 12/31/23 Rx neomycin 500 mg tablet 500 mg PO .COMPLEX #8 tabs 11/22/23 12/29/23 Rx ondansetron HCl 8 mg tablet 8 mg PO Q12H #3 tabs 11/22/23 12/31/23 Rx polyethylene glycol 3350 17 238 g PO ONCE colonoscopy prep 11/22/23 12/29/23 Rx gram/dose oral powder #238 grams Exam Const General: cooperative, healthy appearing and not in acute distress Neck Neck: normal visual inspection, no lymphadenopathy and supple Thyroid: thyroid normal Resp Effort & Inspection: normal respiratory effort Auscultation: clear to auscultation bilaterally Cardio Jugular venous pressure: no JVD Rate: regular rate Rhythm: regular rhythm Heart Sounds: S1 normal and S2 normal GI Inspection: normal to inspection Palpation: soft, no guarding, no hernias and nontender Percussion: normal to percussion Auscultation: normal bowel sounds Neuro General: patient alert, patient awake and patient oriented x3 Psych Appearance: grossly normal
[2023-12-31] VITALS (57 sets, daily range): BP systolic 63–158; BP diastolic 34–91; PULSE 48–79; RESP 10–30; TEMP 36.4–36.8; O2SAT 91–100; BMI 31.7
--- NOTE | 2023-12-31 06:33 | W.ANESPRE ---
General Info Date of Service Date Performed: 12/31/23 Height: 5 ft 8 in Weight: 94.7 kg Body Mass Index (BMI): 31.7 Surgical Procedure: Operation Date: 12/31/23 07:50 Proposed Procedure Side Surgeon p Hemicolectomy Laparoscopic Right Ronnie Sepulveda MD Meds Allergies and Home Medications Allergies Allergy/AdvReac Type Severity Reaction Status Date / Time naltrexone Allergy Severe Lightheaded Verified 12/31/23 06:15 Home Medication Medication Instructions Recorded aspirin 81 mg tablet,delayed 81 mg PO DAILY 10/26/23 release chlorthalidone 25 mg tablet 25 mg PO DAILY 10/26/23 cholecalciferol (vitamin D3) 50 50 mcg PO DAILY 10/26/23 mcg (2,000 unit) capsule rosuvastatin 40 mg tablet 40 mg PO DAILY 10/26/23 losartan 50 mg tablet 50 mg PO DAILY 10/27/23 vitamin D60-rwafdvr B1 1,000 ml IM .weekly 10/27/23 mcg-100 mg/mL injection solution bisacodyl 5 mg tablet,delayed 5 mg PO ONCE colonscopy bowel prep 11/22/23 release (Dulcolax (bisacodyl)) #8 tabs metronidazole 500 mg tablet 500 mg PO .COMPLEX #8 tabs 11/22/23 neomycin 500 mg tablet 500 mg PO .COMPLEX #8 tabs 11/22/23 ondansetron HCl 8 mg tablet 8 mg PO Q12H #3 tabs 11/22/23 polyethylene glycol 3350 17 238 g PO ONCE colonoscopy prep 11/22/23 gram/dose oral powder #238 grams Current Visit Medications: Current Medications Generic Name Dose Route Start Last Admin Trade Name Tim PRN Reason Stop Dose Admin Acetaminophen 1,000 mg 12/31/23 06:00 Acetaminophen 500 Mg Tab PO 12/31/23 23:59 PREOP TONIO Celecoxib 200 mg 12/31/23 06:00 Celecoxib 200 Mg Cap PO 12/31/23 23:59 PREOP TONIO Gabapentin 600 mg 12/31/23 06:00 Gabapentin 300 Mg Cap PO 12/31/23 23:59 PREOP TONIO Ringer's Solution 1,000 mls @ 80 mls/hr 12/31/23 06:00 IV 12/31/23 23:59 INFUSION TONIO Cefazolin Sodium/Dextrose 2 gm in 50 mls @ 100 mls/hr 12/31/23 06:00 Ancef Duplex IVPB 12/31/23 23:59 PREOP TONIO IV Miscellaneous Supplies 1 each 12/31/23 06:00 Iv Access IV 12/31/23 23:59 DIRECTED TONIO Sodium Chloride 0 ml 12/31/23 06:00 Normal Saline Flush 10 Ml Syr IV 12/31/23 23:59 PRN PRN Sodium Chloride 0 ml 12/31/23 06:00 Normal Saline 10 Ml Vial IJ 12/31/23 23:59 DIRECTED PRN Sterile Water 0 ml 12/31/23 06:00 Water,Injection,Sterile 10 Ml Vial IJ 12/31/23 23:59 DIRECTED PRN PFSH Active Problems Active Problems: Problem Status Onset Code Tubular adenoma D36.9 Positive colorectal cancer screening using Cologuard test ~09/2023 R19.5 Snoring R06.83 Essential hypertension I10 Hyperlipidemia E78.5 Alcohol abuse F10.10 Vitamin D3 deficiency E55.9 Cobalamin deficiency E53.8 Medical History Medical History Dizziness and giddiness Dyspnea Surgical History Surgical History History of colonoscopy (~10/2023) Tobacco Smoking/Tobacco Use Status: Current every day Tobacco Type: smokeless tobacco Alcohol Alcohol Intake: current Alcohol intake frequency: 0-2 drinks per day Alcohol type: hard liquor Substance Use Substance use: Never Substance use type: does not use Details: pt chews tobacco daily- hasn't used since yesterday 12/30/23 in the afternoon. Vital Signs and Lab Results Vital Signs Most Recent Vital Signs in EMR: Most Recent Vital Signs Temp Pulse Resp BP Pulse Ox 36.6 C 79 18 158/91 H 98 12/31/23 06:22 12/31/23 06:22 12/31/23 06:22 12/31/23 06:22 12/31/23 06:22 Lab Results Blood Type / Crossmatch: No Data to Display Complete Blood Count: No Data to Display Complete Metabolic Panel: No Data to Display Liver Function Panel: No Data to Display Coagulation Panel: No Data to Display Cardiac Panel: No Data to Display Arterial Blood Gas: No Data to Display Venous Blood Gas: No Data to Display Pancreas Panel: No Data to Display Thyroid Panel: No Data to Display Infectious Disease: No Data to Display Blood Cultures: No Data to Display Toxicology Panel: No Data to Display Imaging and Studies Imaging and Studies Study information below may be from another EMR and interpreted by another provider. Please see original notes in EMR for more complete details. Stress Test Summary: Patient Name: Santos Chavez Unit #: [id number] Loc: Ordering Provider: Taryn Nichole Status: REG CLI Primary Care Provider: Date of Exam: 05/25/23 Sex: M Admission Date: 05/25/23 : 1950 Age: 73 APPROVED REPORT Exam: Exercise Treadmill Patient Location: Out-Patient Room/Bed: Stress Nurse: Jody Wallis RN Ordering Provider:TARYN NICHOLE, Contact Number: [phone] BMI: 32.48 Baseline Rhythm: Sinus Bradycardia Comment: Frequent PAC's and PVC's Indications: Lightheadedness, dyspnea, HTN Medical History Medical History: HLD, HTN, ETOH use, dyspnea, lightheadedness Cardiac Medications: Vitamin D2, rosuvastatin, diazepam, aspirin, naltrexone, atenolol losartan, clorthalidone Allergies: NKA Cardiac Risk Factors: Family hx, HTN, HLD, chewing tobacco Previous Cardiac Procedures: None Pretest Chest Pain Characteristics: / chest ache Exercise History: Indeterminate Physical Disabilities: None Lung Sounds: Clear to auscultation Heart Sounds: Regular Stress Test Details Test: Exercise stress testing was performed using a Anirudh protocol. Nuclear Acquisition: Rest Tc-99m/Stress Tc-99m 1 day Rest Isotope: Tc-99m Sestamibi. Dose: 10.5 Date: 05/25/2023 Injection Time: 1105 Stress Isotope: Tc-99m Sestamibi. Dose: 32.0 Date: 05/25/2023 Injection Time: 1240 HR Resting HR Supine: 58 bpmMax Heart Rate (APMHR): 149.869569 bpm Resting HR Standin bpmTarget HR (85% APMHR): 126.149151 bpm Max HR Achieved: 143 bpm % of APMHR: 95.97 Recovery HR: 82 bpm HR response to stress: Normal HR response to stress BP Resting BP Supine: 182/90 mmHg Resting BP Standin/80 mmHg Max BP: 190/90 mmHg Recovery BP: 170/90 mmHg BP response to stress: Normal blood pressure response to stress. ECG Resting ECG: Sinus Bradycardia Ectopy: Frequent PAC's and PVC's Stress ECG: Sinus Tachycardia ST Change: No significant ST segment changes noted Arrhythmia: Frequent PAC's and PVC's Recovery ECG: Sinus Rhythm Recovery ST Change: No significant ST segment changes noted Recovery Arrhythmia: Occasional PAC's and PVC's Clinical Reason for Termination: Target HR Achieved, Fatigue Stress Symptoms: 3/10 chest pressure, general fatigue Exercise duration: 04 min59 sec Highest Stage Reached: Stage 2: 2.5 mph at 12% grade. Exercise capacity: 7.03 METs Angina Score: Non-Limiting Noland Treadmill Score: 0.7 Rate Pressure Product: [id number] Stress ECG Conclusion 1. The resting electrocardiogram was within normal limits 2. The patient exercised on a Anirudh protocol completed a workload of 7 METS. Normal heart rate response to exercise. Hypertension was present at rest. The patient achieved 96% of predicted heart rate for age 3. There was no electrocardiographic evidence of myocardial ischemia 4. Atrial and ventricular ectopic beats were noted 5. See MPI report Noland Treadmill Score is 0.7 which is Moderate risk. Stress Test Summary STAGETime (mins)Speed (mph)Grade (%)[id number] Liwadf04731/90 Bbltkths90642/80 131.210654135/883-4/10 chest pressure, general fatigue4.5 074.3093925-4/10 chest pressure, general fatigue7 1 min jpowhgmx818239/903-4/10 chest pressure, general fatigue 3 min qihgthid71495/96 6 min cilvgvgg43556/15426Aoc symptoms resolved. MPI Conclusion Myocardial perfusion is normal. There is no ischemia or evidence of prior infarction Ejection fraction is 59%, wall motion is normal Radiologist Interpretation Radiologist agrees with Automotive Upholsterer's Interpretation. Radiologist Interpretation by: Riky Munguia MD Interpretation Date/Time: 05/27/2023 18:44:04 Ordered By: Taryn Nichole CC: AKIRA MO,MATT Dictated By: Bharti May M.D. 05/25/23 1324 <Electronically signed by Bharti May M.D. in OV> 05/28/23 0805 Transcribed By: Bharti May MD This is privileged, confidential information intended only for the provider named. Any use or distribution by any person other than this provider is strictly prohibited. If you receive this report in error, please notify us immediately at [phone] and return the original report to us at the address above. Thank-you. Echocardiogram Summary: Patient Name: Santos Chavez Unit #: [id number] Loc: Ordering Provider: Taryn Nichole Status: [facility] Primary Care Provider: Unknown,Unknown Date of Exam: 04/07/23 Sex: M Admission Date: 04/07/23 : 1950 Age: 73 APPROVED REPORT EXAM: Comprehensive 2D, Doppler, and color-flow Echocardiogram Patient Location: Out-Patient Strike Off Machine Operator: Rich Grimaldo RDMS, T Indications: lightheadedness, dyspnea Other Information Study Quality: Fair Conclusion Normal left ventricular wall thickness and chamber size. Ejection fraction is 55%. There are no segmental wall motion abnormalities Normal right ventricular size and systolic function Both atria are normal in size Aortic valve is mildly sclerotic and trileaflet without stenosis or regurgitation Estimated right ventricular systolic pressure is 37 mmHg Mildly dilated ascending aorta measuring 3.84 cm Wall motion Left Ventricle The left ventricle is normal size. Left ventricular systolic function is normal There is normal left ventricular wall thickness. There are no segmental wall motion abnormalities There is no ventricular septal defect visualized. LVEF is 55%. Right Ventricle The right ventricle is normal size. Right ventricular systolic function is grossly normal. The RVSP is 37.4 mmHg. Atria The left atrium size is normal. The right atrium size is normal. The interatrial septum is intact with no evidence for an atrial septal defect. Aortic Valve The aortic valve is mildly sclerotic Aortic valve is trileaflet. There is no aortic valvular stenosis. No aortic regurgitation is present. Mitral Valve The mitral valve is normal in structure. No evidence of mitral valve stenosis. Trace mitral regurgitation. Tricuspid Valve The tricuspid valve is normal in structure. There is no tricuspid valve stenosis. Trace tricuspid regurgitation. Pulmonic Valve The pulmonary valve is normal in structure. There is no pulmonic valvular stenosis. Mild pulmonic regurgitation. Great Vessels The aortic root is normal in size. The ascending aorta is mildly dilated. Aortic arch is not well visualized. IVC is normal in size and collapses >50% with inspiration. Pericardium There is no pericardial effusion. 2D Dimensions IVSD d PLAX 0.75 cm M: 0.6-1.2LV Vol A2C d MOD 85.3 mL LVPW d PLAX 0.75 cm M: 0.6 - 1.2LV Vol A4C d MOD 106.3 mL LVID d PLAX 5.31 cm M: 4.2 - 5.8LV EF A4C MOD 46.4 % LVDs 4.00 cm M: 2.5 - 4.0LV EF A2C MOD 50.1 % Ao Root d 3.51 cm M: 3.1 - 3.7LV EF Biplane MOD 49.1 % Ao Asc Diam d 3.84 cm M: 2.6 - 3.4SV50.24 mL LV EF Teichholz 47.5 %SV Index23.45 mL/m2 LVEF (Gu's)49.10 % M: 52 - 72 LV Tpzwho33.04 mL M: 62 - 150 LV Volume Index35.06 mL/m2 M: 34 - 74 LV Vol Biplane MOD 102.3 mL FS24.00 % M-Mode TAPSE 2.53 cm (M/F) >1.7 LV Diastology MV E' medial0.124 (>0.07 m/s)E/A Ratio 1.1 LV E/e MED7.75 (<14)MV E Vmax 0.96 (0.4-1.3 m/s) MV E' lateral0.093 (>0.1 m/s)MV A Vmax 0.85 (0.4-1.3 m/s) LV E/e LAT10.35 (<14)MV E/A Ratio 1.11 MV E/E' medial 7.78 MV E/E' fqxsbon94.37 Aortic Valve LVOT Area3.88 cm2AoV Area Vmax3.14 cm2 LVOT Vmax 1.20 m/sAoV Area/ BSA (Vmax)1.46 cm2/m2 LVOT Mean Warner.0.77 m/sAVA Mean Warner.2.93 cm2 LVOT Peak Grad 5.8 mmHgAVA Mean Warner. Index1.37 cm2/m2 LVOT Mean Grad 2.8 mmHg LVOT VTI0.265 m LVOT Diam s 2.20 cm AoV Vmax1.49 m/s Velocity Ratio 0.81 AoV Mean Warner.1.02 m/s AoV Peak Grad8.8 mmHg LVOT SV 102.90 mL AoV Mean Grad4.7 mmHg AoV VTI0.319 m AoV Area VTI3.23 cm2 AoV Area/ BSA (VTI)1.51 cm/m2 Mitral Valve MV DT 133 (160-240 msec) MV PHT38 msec MV Area PHT 5.72 cm2 MV VTI 0.320 m MV Area VTI 3.22 (4.0-6.0 cm2) Pulmonary Valve PV Vmax 1.30 (0.5-1.5 m/s)RVOT Peak Gr.1.91 mmHg PV Peak Grad 6.8 mmHgRVOT Mean Gr.1.10 mmHg PV Mean Grad 3.6 mmHgRVOT VTI0.154 m PV VTI 0.266 mRVOT Vmax 0.69 m/s Tricuspid Valve TR Peak Grad 34.4 mmHgTR Vmax 2.93 m/s RA Pressure 3.00 mmHg RVSP (TR) 37.4 mmHg Ordered By: Taryn Nichole CC: Dictated By: Bharti May M.D. 04/07/23 1256 <Electronically signed by Bharti May M.D. in OV> 04/08/23 9210 Transcribed By: Bharti May MD This is privileged, confidential information intended only for the provider named. Any use or distribution by any person other than this provider is strictly prohibited. If you receive this report in error, please notify us immediately at [phone] and return the original report to us at the address above. Thank-you. Carotid Artery Summary:: Patient Name: Santos Chavez Unit #: [id number] Loc: DI Ordering Provider: Taryn Nichole Status: REG CLI Primary Care Provider: Date of Exam: 06/15/23 Sex: M Admission Date: 06/15/23 : 1950 Age: 73 Exam(s) US CAROTID EXAM: US CAROTID CLINICAL HISTORY: LIGHTHEADEDNESS,R42, FAMILY H/O CAROTID ARTERY STENOSIS. TECHNIQUE: Ultrasound carotids performed using grayscale, color-flow, and spectral Doppler imaging. COMPARISON: No exams were available for comparison FINDINGS: RIGHT CAROTID ARTERY: Plaque: Mild calcific plaque is seen in the carotid bulb and proximal right ICA. Velocity elevation: None. LEFT CAROTID ARTERY: Plaque: Mild calcific plaque is seen in the carotid bulb and proximal left ICA. Velocity elevation: None. VERTEBRAL ARTERIES: Antegrade flow. Measurements: R Bulb: 56.9cm/s PS / 15.4cm/s ED R CCA: 86.7cm/s PS / 21.9cm/s ED R ECA: 100.9cm/s PS / 14.1cm/s ED R ICA Prox: 102cm/s PS / 25.4cm/s ED R ICA Mid: 114.8cm/s PS / 25.4cm/s ED R ICA Distal: 92.4cm/s PS /25.2cm/s ED R Vert: 45cm/s PS / 15.3cm/s ED R SVR: 1.3 R DVR: 1.2 L Bulb: 54.4cm/s PS / 13.2cm/s ED L CCA: 93cm/s PS / 20.7cm/s ED L ECA: 81.1cm/s PS / 13.2cm/s ED L ICA Prox: 80.1cm/s PS / 21.7cm/s ED L ICA Mid: 94.7cm/s PS / 29cm/s ED L ICA Distal: 86.9cm/s PS / 26.8cm/s ED L Vert: 47.1cm/s PS / 15.6cm/s ED L SVR: 1 L DVR: 1.4 IMPRESSION: No evidence for hemodynamically significant carotid stenosis. Criteria for Carotid Stenosis: Normal: ICA PSV <125 cm/s no plaque or intimal thickening is visible. <50% stenosis: ICA PSV <125 cm/s and plaque or intimal thickening is visible. 50-69% stenosis: ICA PSV is 125-250 cm/s and plaque is visible. >70% stenosis to near occlusion: ICA PSV >250 cm/s with visible plaque and luminal narrowing. DATA REPOSITORY: Ordered By: Taryn Nichole CC: Dictated By: Yefri Sepulveda M.D. 06/15/23921 <Electronically signed by Yefri Sepulveda M.D. in OV> 06/15/23921 Transcribed By: Yefri Sepulveda This is privileged, confidential information intended only for the provider named. Any use or distribution by any person other than this provider is strictly prohibited. If you receive this report in error, please notify us immediately at [phone] and return the original report to us at the address above. Thank-you. Anesthesia Assessment and Plan Anesthesia History Personal History: No History of Anesthesia Complications Family History: No Family History of Anesthesia Complications Exercise Tolerance Exercise Tolerance: Metabolic Equivalents>4 Pertinent Negatives Pertinent Negatives: No Symptoms of GERD, No Major Cardiovascular Symptoms or Complaints, No Major Pulmonary Symptoms or Complaints and No History of CVA/TIA Cardiac & Pulmonary Exam Cardiac Exam: Normal S1/S2 Heart Sounds Pulmonary Exam: Clear Bilateral Breath Sounds Implantable Cardiac Device Does patient have a Pacemaker or an ICD?: No Airway Exam Known Difficult Airway: No Mallampati Class: 3 Mouth Opening: Normal (> 3cm) Thyromental Distance: Greater than 3 cm Neck Range of Motion: Full ROM Neck Circumference: Normal Teeth Condition: Generalized Poor Dentition and Loose or Chipped Airway Comments: Multiple missing teeth, some chipped and broken ASA Classification ASA Score: ASA 2 Emergency Case?: No NPO Status NPO Status: NPO Clears >2 hours, Solids >8 hours Anesthesia Plan Resuscitation Status: Full Code Anesthesia Technique: General Anesthesia Airway Planned: Endotracheal Tube Monitors Used: Standard Monitors, Arterial Line, SedLine and POCUS (Midline)
[2023-12-31] MEDS: Gabapentin 300 MG CAP 600 MG PO (06:35)
[2023-12-31] MEDS: Celecoxib 200 MG CAP PO (06:35)
[2023-12-31] MEDS: Acetaminophen 500 MG TAB 1000 MG PO (06:36)
[2023-12-31] MEDS: Lactated Ringers 1,000 ML 80 ML IV (06:47)
[2023-12-31] MEDS: ceFAZolin 2 GM/50 ML BAG IVPB (07:42)
[2023-12-31] MEDS: Norepinephrine in D5W 8 MG/250 ML BAG 7.8 MG IV (07:45)
[2023-12-31] MEDS: Bupivacaine 0.25% Pres-Free 30 ML VIAL (08:38)
[2023-12-31] MEDS: Bupivacaine LIPOSOME/PF 133 MG/10 ML VIAL IJ (08:39)
--- NOTE | 2023-12-31 08:59 | W.ANESVAS ---
Arterial Line Placement Date Performed: 12/31/23 Procedure Time: 07:55 Procedure Location: Operating Room Requesting Provider: Ronnie Sepulveda Timeout Performed: Yes Sedation Given (Indicate Dose Given): No Sedation given Patient Mental Status: Performed under general anesthesia Sterility: Hand Hygiene, Surgical Cap, Surgical Mask, Sterile Gloves and Chlorhexidine Laterality: Left Insertion Site: Radial Arterial Line Catheter: 20G Arrow Arterial Line Procedure: Vessel accessed with catheter over needle, Guidewire placed with ease and Guidewire removed Dressing: Tegaderm Applied Ultrasound: Sterile probe cover and gel used Ultrasound Image Saved?: Yes Number of Attempts (See previous attempts in note section): 1 Procedure Tolerated: No Complications and Patient tolerated well Procedure Outcome: Successful Performed By: Pina Gamez Supervised By: Armando Watt Midline Placement Date Performed: 12/31/23 Procedure Time: 08:30 Requesting Provider: Ronnie Sepulveda Procedure Location: Operating Room Sedation Given (Indicate Dose Given): No Sedation given Patient Mental Status: Performed under general anesthesia Sterility: Hand Hygiene, Surgical Cap, Surgical Mask, Sterile Gloves and Chlorhexidine Laterality: Right Insertion Site: Basilic Midline Device: PowerGlide Pro 20G Catheter Length: 10 cm Midline Procedure Procedure: Vessel accessed with catheter over needle, Guidewire placed with ease and Guidewire removed Dressing: Tegaderm Applied Blood Return: Present Flushes: Easily Ultrasound: Sterile probe cover and gel used Ultrasound Image Saved?: Yes Number of Attempts (See previous attempts in note section): 2 Procedure Tolerated: No Complications and Patient tolerated well Procedure Outcome: Successful Performed By: Armando Watt
--- NOTE | 2023-12-31 11:00 | BOWEL_PTH ---
PATIENT: Santos Chavez LOC: ICU U#:[id number] AGE/SX: 73/M ROOM: ICU.219 RE12/31/[address]: Ronnie Sepulveda MD : 1950 BED: A DIS: 01/04/2024 SPEC #: [id number] RECD: 12/31/23 12:47 STATUS: SOUParul REQ #: [id number] SUNDAY: 12/31/23 11:[address]: Ronnie Sepulveda DEPT: Surgical Specimen RECD BY: Ondina Ayala ENTERED: 12/31/23 12:48 SP TYPE: Bowel OTHR DR: Taryn Nichole Tissues: 1 - BOWEL RESECTION(OTHER) Procedures: GROSS AND MICRO LEVEL 5 Comments: [id number]
[2023-12-31] MEDS: fentaNYL 100 MCG/2 ML VIAL IVP ×2 (12:36→13:30)
--- NOTE | 2023-12-31 13:18 | W.ANESPOSTOP ---
Postoperative Evaluation Date, Time and Location Date Performed: 12/31/23 Time Performed: 13:18 Patient Location: PACU Vital Signs Most Recent Imported Vital Signs: Most Recent Vital Signs Temp Pulse Resp BP Pulse Ox 36.5 C 48 L 17 116/52 L 98 12/31/23 13:10 12/31/23 13:10 12/31/23 13:10 12/31/23 13:10 12/31/23 13:10 Pain Score Most Recent Pain Score: Most Recent Pain Score Pain Level 8 12/31/23 12:28 Assessment Mental Status: Awake (Alert & Oriented to Patient Baseline) Airway and Respiratory Function: Patent airway with normal (patient baseline) respiratory exam Cardiovascular Function: Hemodynamically Unstable (See Explanation) and Receiving care as an inpatient Hydration Status: Adequately Hydrated Nausea & Vomiting: No Nausea or Vomiting Pain: Other (pt receiving medication for pain in pacu ) Peripheral Nerve Block: Patient did not receive a nerve block Postoperative Comments:: pt going to in patient bed
[2023-12-31] MEDS: Lactated Ringers 1,000 ML 50 ML IV (15:36)
[2023-12-31] MEDS: Enoxaparin 40 MG/0.4 ML SYR SC (15:39)
[2023-12-31] MEDS: ACETAMINOPHEN 1,000 MG/100 ML BTL 400 MG IVPB ×2 (15:39→23:36)
[2024-01-01] VITALS (102 sets, daily range): BP systolic 65–136; BP diastolic 46–77; PULSE 55–80; RESP 10–27; TEMP 36–36.8; O2SAT 86–99; BMI 31.2
[2024-01-01] MEDS: Ketorolac 15 MG/ML VIAL IVP (03:51)
[2024-01-01] MEDS: Normal Saline 500 ML IV (05:52)
[2024-01-01 06:30] LABS: Abs Immature Grans 0.05 10^3/uL (0.0-0.06); Absolute Basophil Count 0.01 10^3/uL (0.0-0.2); Absolute Lymphocyte Count 0.98 10^3/uL (1.2-3.4); Absolute Monocyte Count 0.75 10^3/uL (0.1-0.8); Absolute Neutrophil Count 8.82 10^3/uL (1.2-6.7); Basophils % 0.1; HGB 10.2 g/dL (13.5-17.5); Immature Grans % 0.5; Lymphocytes % 9.2; MCH 31.4 pg (27.0-33.0); MCV 92 fL (80-95); MPV 11.2 fL (8.0-11.0); Monocytes % 7.1; Neutrophils % 83.1; Platelet Count 163 10^3/uL (130-400); RBC 3.25 10^6/uL (4.36-5.78); RDW-SD 40.5 fL; WBC 10.61 10^3/uL (4.4-10.8)
[2024-01-01 06:45] LABS: ALT 19 U/L (16-63); AST 9 U/L (15-37); Albumin 2.8 g/dL (3.4-5.0); Alkaline Phosphatase 47 U/L (46-116); Anion Gap 11.4 mmol/L (3-11); BUN 27 mg/dL (7-18); Bilirubin, Total 0.5 mg/dL (0.2-1.0); CO2 23.6 mmol/L (21.0-32.0); CREATININE 2.1 mg/dL (0.70-1.30); Calcium 7.7 mg/dL (8.5-10.1); Chloride 102 mmol/L (98-107); Estimated GFR 33.03 (mL/min/1.73m2); Glucose 121 mg/dL (74-106); Sodium 137 mmol/L (136-145); Total Protein 5.6 g/dL (6.4-8.2)
[2024-01-01] MEDS: Tranexamic Acid 1,000 MG/10 ML VIAL 1000 MG IVP (06:55)
[2024-01-01] MEDS: TRANEXAMIC ACID/SOD. CHL. 1,000 MG/100 ML BAG 12.5 MG IV (07:36)
[2024-01-01] MEDS: Ondansetron 4 MG/2 ML VIAL IVP (07:37)
--- NOTE | 2024-01-01 08:46 | W.PM.PROGNOT ---
Date of Service Date of service: 01/01/24 Time of Service: 07:00 Assessment and Plan Assessment and plan (1) Hemorrhage of surgical anastomosis site of digestive tract: Status: Acute Assessment and plan: pt going to OR -Patient received TXA 3 units packed RBCs 1 unit FFP No calcium or magnesium Zosyn on-call to the OR colonsocpy and attempts to control anastomotic bleeding possible laparotomy and revision of incision versus colostomy central line Informed consent is obtained for the procedural (explained in simple layman's terms that the pt and/or family could understand) explaining risks vs benefits and alternatives to the procedure and consequences if we do not do the procedure. Risks include but are not limited to: bleeding, infections, pneumonia, blood clots/DVT/PE, anesthesia (aspiration, damage to teeth/airway/GA/CVA//prolonged mechanical ventilation/PTX/IV infections), damage to bowel, bladder, blood vessels, ureters, Damage to solid organs requiring removal. damage to anastomosis requiring colostomy from anastomosis requiring colostomy/ Wound infections requiring further surgery. ?Scarring and disfigurement. Subsequent bowel obstructions from scar tissue.? Chronic pain or numbness from the incision, or hernia. This document was created with voice activated software and may contain errors. 3 hours was spent in critical care time with this patient prior to going to surgery (2) Alcohol abuse: Status: Chronic (3) Essential hypertension: Status: Acute (4) Hyperlipidemia: Status: Acute (5) Tubular adenoma: Status: Acute (6) Snoring: Status: Acute (7) Hypotension: Status: Resolved Subjective Subjective Interval history since last seen: Patient started having melanotic stools throughout the course of the night. At approximately 6 AM he started to become hemodynamically unstable and was having large quantity melena. Patient did not respond to fluid challenge. TXA and blood were ordered. And massive transfusion protocol was initiated. Patient continued to pass large volume of bloody stool. However his his blood pressure was transient. He received 3 units blood and 1 unit of plasma. He received an initial 1 g of TXA and then 1 additional gram over 8 hours is being infused. Patient is not having any abdominal pain or peritoneal signs. He does not have any abdominal swelling. His incision is clean dry and intact. The bleeding appears to be intraluminal only. Patient complains of feeling weak/dizzy/cold/clammy. He is able to communicate. He is able to protect his airway. He is not having any chest pain or shortness of breath. He has not had any fever or chills. He is not having any vomiting. He has had some nausea and did receive Zofran. The patient was sleeping when the bowel movements started to happen. He is getting some cramping and pain just before he passes stools. He was cold and clammy prior to blood being transfused. Blood and plasma were given via the rapid infuser. Surgery was notified. The decision was made to take the patient down for this and this He see if we could localize the bleeding source. If we cannot control the bleeding and endoscopically. Then we will need to going to do a laparotomy most likely the bleeding is coming from the anastomosis. That would either require revision of the anastomosis and some kind of stoma. Patient is not a smoker. He is not obese. He is not diabetic. He does have a history of hypertension and elevated cholesterol. He does drink 2-3 drinks a day. He had no problems with anesthesia and during the original case. He does have a midline and an A-line in place. Exam Narrative Exam Narrative: No fevers. He is complaining of being cold and clammy. He is making urine but it is concentrated. No jaundice no thrush No chest pain or shortness of breath He does show tachycardia and hypotension. There are no ST-T wave changes. Lungs are clear to auscultation bilaterally Abdomen is soft with appropriate postsurgical pain. He does have bowel sounds. There is no abdominal distention. The incision is clean dry and intact he does not appear to be bleeding internally. She has significant amount dark blood and clot that is being evacuated through the rectum. Objective Last Vital Signs Temp 36.8 C 01/01/24 07:46 Pulse 63 01/01/24 07:46 Resp 18 01/01/24 07:46 BP 129/46 L 01/01/24 07:46 Pulse Ox 95 01/01/24 07:46 Laboratory Results - last 24 hr 01/01/24 05:30 WBC 10.61 RBC 3.25 L Hgb 10.2 L Hct 30.0 L MCV 92 MCH 31.4 MCHC 34.0 RDW 12.0 Plt Count 163 MPV 11.2 H Immature Gran % 0.5 Neutrophils % 83.1 Lymphocytes % 9.2 Monocytes % 7.1 Eosinophils % 0.0 Basophils % 0.1 Nucleated RBC % 0.0 Absolute Neutrophils 8.82 H Absolute Lymphocytes 0.98 L Absolute Monocytes 0.75 Absolute Eosinophils 0.00 Absolute Basophils 0.01 Sodium 137 Potassium 4.0 Chloride 102 Carbon Dioxide 23.6 Anion Gap 11.4 H BUN 27 H Creatinine 2.1 H Est GFR (CKD-EPI 2020) 33.03 Glucose 121 H Calcium 7.7 L Total Bilirubin 0.5 AST 9 L ALT 19 Alkaline Phosphatase 47 Total Protein 5.6 L Albumin 2.8 L Patient ABO/Rh B Positive Antibody Screen NEGATIVE Crossmatch See Detail PAWSS Have you Been Recently Intoxicated or Drunk Within the Last 30 days?: Yes Have you Ever Experienced Previous Episodes of Alcohol Withdrawal?: No Have you ever Experienced Withdrawal Seizures?: No Have you ever Experienced Delirium Tremens(DT)s?: No Have you ever undergone Alcohol Rehabilitation Treatment (i.e, inpt ot outpatient treatment programs)?: No Have you ever Experienced Blackouts?: No Have you ever Combined Alcohol with other Downers within the last 90 days?: No Have you ever Combined Alcohol with any other Substance of Abuse during the last 90 days?: No Positive Blood Alcohol level on Presentation? [PCS.BAL]: No Evidence of Increased Autonomic Activity (i.e. HR>120, tremor, sweating, agitation, nausea)?: No Result: 1 Time Spent with Patient Time Spent with Patient: >50 minutes Time was spent: preparing to see the patient(eg.review tests), obtaining and/or reviewing separately otained hiistory, ordering medications,tests, procedures, referring, communicating with other health reproductive healthcare assistant, indepentently interpreting results, counseling the patient and care coordination
[2024-01-01] MEDS: Normal Saline 250 ML IV (09:06)
[2024-01-01] MEDS: PIPERACILLIN/TAZO 3.375 GM in Normal Saline 50 ML IVPB (09:20)
--- NOTE | 2024-01-01 10:30 | INITIAL_ITS ---
Date of service: 01/01/24 Time of Service: 10:31 Care Management Initial Assmt Initial Assessment REASON FOR HOSPITALIZATION:: Tubular adenoma PREVIOUS FUNCTIONAL STATUS/SOCIAL/FAMILY SUPPORTS:: Santos lives in [place] with his , Jeanna. They have two daughters; Fabby, who lives nearby and is supportive, and Roberto, who lives in [place]. He has five grandchildren. He is retired from working at a [employer]. He is independent at baseline. CURRENT FUNCTIONAL STATUS:: Santos was resting when CM attempted to meet with him. His daughter, Fabby was in the room visiting, and engaged in conversation with CM. She stated that the family is very supportive, and his plan will be to return home once he is medically cleared. CM discussed HH RN for additional support, which she felt he would agree to. Santos woke up briefly during the visit and discussed his plan with CM, also confirming that he has a very supportive family. Per report, he went to the OR today after he was found to be bleeding, and was given three units of blood. He stated that per MD, the surgery went well, and he expects to be inpatient for a few days before being ready for discharge. CM will continue to follow. ADVANCE DIRECTIVES:: Not on file. Has patient been provided with info about the portal/API?: Yes Did the patient sign up for the portal?: No CODE STATUS:: Full Code INSURANCE COVERAGE / FINANCIAL ISSUES:: /BS Federal CURRENT HOME/COMMUNITY SERVICES/EQUIPMENT:: None PRIMARY CARE PHYSICIAN:: Taryn Nichole POTENTIAL DISCHARGE NEEDS:: Evaluations for further needs, follow up appointments. PATIENT/FAMILY EDUCATION NEEDS:: Review discharge instructions and limitations, discussion of self care needs including ask me three. ANTICIPATED BARRIERS TO DISCHARGE:: None identified TRANSPORTATION:: via private vehicle by family PLAN:: Anticipate Santos will return home once medically cleared. His will drive him home via private vehicle when ready. He will follow up with his PCP, surgical services, and his discharge plan of care. CM will continue to follow. PFSH All Active Problems S/P exploratory laparotomy (Acute) Hypotension (Acute) Hemorrhage of surgical anastomosis site of digestive tract (Acute) Tubular adenoma (Acute) Snoring (Acute) Essential hypertension (Acute) Hyperlipidemia (Acute) Alcohol abuse (Chronic) Medical History (Updated 01/01/24 @ 12:35 by Gayle Chilel DO) Cobalamin deficiency Vitamin D3 deficiency Positive colorectal cancer screening using Cologuard test (~09/2023) On referral Dizziness and giddiness Dyspnea Surgical History (Updated 01/01/24 @ 12:35 by Gayle Chilel DO) S/P right hemicolectomy History of colonoscopy (~10/2023) Family History (Updated 10/13/23 @ 13:18 by Kya Keene RN, RN) Father Myocardial infarction Mother A-fib Carotid artery stenosis Social History (Updated 10/13/23 @ 13:19 by Kya Keene RN, RN) Smoking/Tobacco Use Status: Current every day Tobacco Type: smokeless tobacco Smoking risk assessment performed?: Yes Alcohol Intake: current Alcohol Intake frequency: 0-2 drinks per day Alcohol type: hard liquor Drug use: Never Substance use type: does not use Details: pt chews tobacco daily- hasn't used since yesterday 12/30/23 in the afternoon. Housing: house Do you feel safe at home: Yes Do you feel safe in your relationship?: Yes SDOH(Care Management) Screening Will the Patient Participate in the Screening?: Yes Do you worry about having a steady place to live?: no Problems where you live: no known problems In the past 12 months, have you had to go without electric, gas, oil or water in your home?: no Have you or anyone in your house had to go without enough food to eat?: no Has lack of transportation kept you from medical appointments or from doing things needed for daily living?: no Has anyone in your support network made you feel unsafe for any reason?: no
[2024-01-01] MEDS: Bupivacaine 0.5% Pres-Free 30 ML VIAL (10:51)
--- NOTE | 2024-01-01 10:52 | W.ANESPRE ---
General Info Date of Service Date Performed: 01/01/24 Height: 5 ft 9 in Weight: 96 kg Body Mass Index (BMI): 31.2 Surgical Procedure: Operation Date: 12/31/23 07:50 Proposed Procedure Side Surgeon p Hemicolectomy Laparoscopic Right Ronnie Sepulveda MD Actual Procedure Side Surgeon p Hemicolectomy Laparoscopic Right Ronnie Sepulveda MD Pre-Op Diagnosis Post-Op Diagnosis TUBULAR ADENOMA TUBULAR ADENOMA Operation Date: 01/01/24 08:55 Proposed Procedure Side Surgeon p Colonoscopy Not Applicable Gayle Chilel DO s Exploratory Laparotomy Not Applicable Gayle Chilel DO Actual Procedure Side Surgeon p Colonoscopy Not Applicable Gayle Chilel DO s Exploratory Laparotomy Not Applicable Gayle Chilel DO Pre-Op Diagnosis Post-Op Diagnosis RECTAL BLEEDING S/P ANASTAMOSIS Meds Allergies and Home Medications Allergies Allergy/AdvReac Type Severity Reaction Status Date / Time naltrexone Allergy Severe Lightheaded Verified 12/31/23 06:15 Home Medication Medication Instructions Recorded aspirin 81 mg tablet,delayed 81 mg PO DAILY 10/26/23 release chlorthalidone 25 mg tablet 25 mg PO DAILY 10/26/23 cholecalciferol (vitamin D3) 50 50 mcg PO DAILY 10/26/23 mcg (2,000 unit) capsule rosuvastatin 40 mg tablet 40 mg PO DAILY 10/26/23 losartan 50 mg tablet 50 mg PO DAILY 10/27/23 vitamin [id number]-[id number] B1 1,000 ml IM .weekly 10/27/23 mcg-100 mg/mL injection solution bisacodyl 5 mg tablet,delayed 5 mg PO ONCE colonscopy bowel prep 11/22/23 release (Dulcolax (bisacodyl)) #8 tabs metronidazole 500 mg tablet 500 mg PO .COMPLEX #8 tabs 11/22/23 neomycin 500 mg tablet 500 mg PO .COMPLEX #8 tabs 11/22/23 ondansetron HCl 8 mg tablet 8 mg PO Q12H #3 tabs 11/22/23 polyethylene glycol 3350 17 238 g PO ONCE colonoscopy prep 11/22/23 gram/dose oral powder #238 grams Current Visit Medications: Current Medications Generic Name Dose Route Start Last Admin Trade Name Freq PRN Reason Stop Dose Admin Chlorthalidone 25 mg 01/01/24 08:30 01/01/24 07:43 Chlorthalidone 25 Mg Tab PO Not Given DAILY TONIO Cholecalciferol 2,000 units 01/01/24 08:30 01/01/24 07:43 Cholecalciferol (Vitamin D3) 1,000 Unit Tab PO Not Given DAILY [facility] Hydromorphone HCl 1 mg 12/31/23 14:21 Hydromorphone 2 Mg/Ml Syr IVP Q6H PRN PRN Norepinephrine Bitartrate 8 mg in 250 mls @ 7.5 mls/hr 12/31/23 12:30 12/31/23 13:36 IV 0 mcg/min INFUSION TONIO 0 mls/hr Titration Protocol 4 MCG/MIN Acetaminophen 1,000 mg in 100 mls @ 400 mls/hr 12/31/23 14:00 01/01/24 07:42 Ofirmev IVPB Not Given Q8H [facility] Ringer's Solution 1,000 mls @ 50 mls/hr 12/31/23 15:30 01/01/24 07:36 IV 0 mls/hr INFUSION [facility] Infusion Tranexamic Acid/Sodium Chloride 1,000 mg in 100 mls @ 12.5 mls/hr 01/01/24 08:00 01/01/24 09:29 IV Infused INFUSION [facility] Infusion Octreotide Acetate 250 mcg/ 250 mls @ 50 mls/hr 01/01/24 07:45 Sodium Chloride IV INFUSION TONIO Protocol 50 MCG/HR IV Miscellaneous Supplies 1 each 12/31/23 14:21 Iv Access IV DIRECTED [facility] Losartan Potassium 50 mg 01/01/24 08:30 01/01/24 07:43 Losartan 50 Mg Tab PO Not Given DAILY [facility] Ondansetron HCl 4 mg 12/31/23 14:21 01/01/24 07:37 Ondansetron 4 Mg/2 Ml Vial IVP 4 mg Q4H PRN PRN Administration Psyllium Hydrophilic Mucilloid 1 each 01/01/24 08:30 01/01/24 07:43 Psyllium Pkt PO Not Given DAILY [facility] Rosuvastatin Calcium 40 mg 01/01/24 08:30 01/01/24 07:43 Rosuvastatin 20 Mg Tab PO Not Given DAILY [facility] Simethicone 80 mg 12/31/23 14:21 Simethicone 80 Mg Chew PO Q4H PRN PRN Sodium Chloride 0 ml 12/31/23 14:21 Normal Saline Flush 10 Ml Syr IVP PRN PRN Sodium Chloride 0 ml 04/12/24 20:00 01/01/24 07:44 Normal Saline Flush 10 Ml Syr IVP Not Given BID TONIO Sodium Chloride 0 ml 12/31/23 14:21 Normal Saline 10 Ml Vial IJ DIRECTED PRN PFSH Active Problems Active Problems: Problem Status Onset Code Hypotension I95.9 Hemorrhage of surgical anastomosis site of digestive tract K91.840 Tubular adenoma D36.9 Positive colorectal cancer screening using Cologuard test ~09/2023 R19.5 Snoring R06.83 Essential hypertension I10 Hyperlipidemia E78.5 Alcohol abuse F10.10 Vitamin D3 deficiency E55.9 Cobalamin deficiency E53.8 Medical History Medical History (Updated 01/01/24 @ 08:47 by Gayle Chilel DO) Dizziness and giddiness Dyspnea Surgical History Surgical History History of colonoscopy (~10/2023) Tobacco Smoking/Tobacco Use Status: Current every day Tobacco Type: smokeless tobacco Alcohol Alcohol Intake: current Alcohol intake frequency: 0-2 drinks per day Alcohol type: hard liquor Substance Use Substance use: Never Substance use type: does not use Details: pt chews tobacco daily- hasn't used since yesterday 12/30/23 in the afternoon. Vital Signs and Lab Results Vital Signs Most Recent Vital Signs in EMR: Most Recent Vital Signs Temp Pulse Resp BP Pulse Ox 36.8 C 63 18 129/46 L 95 01/01/24 07:46 01/01/24 07:46 01/01/24 07:46 01/01/24 07:46 01/01/24 07:46 Lab Results 01/01/24 05:30 01/01/24 05:30 Blood Type / Crossmatch: Patient ABO/Rh B Positive 01/01/24 Antibody Screen NEGATIVE 01/01/24 Crossmatch See Detail 01/01/24 Complete Blood Count: White Blood Count 10.61 10^3/uL (4.4-10.8) 01/01/24 05:30 Red Blood Count 3.25 10^6/uL (4.36-5.78) L 01/01/24 05:30 Hemoglobin 10.2 g/dL (13.5-17.5) L 01/01/24 05:30 Hematocrit 30.0 % (40.0-50.0) L 01/01/24 05:30 Platelet Count 163 10^3/uL (130-400) 01/01/24 05:30 Complete Metabolic Panel: Sodium 137 mmol/L (136-145) 01/01/24 05:30 Potassium 4.0 mmol/L (3.5-5.1) 01/01/24 05:30 Chloride 102 mmol/L (98-107) 01/01/24 05:30 Carbon Dioxide 23.6 mmol/L (21.0-32.0) 01/01/24 05:30 BUN 27 mg/dL (7-18) H 01/01/24 05:30 Creatinine 2.1 mg/dL (0.70-1.30) H 01/01/24 05:30 Est GFR (CKD-EPI 2020) 33.03 (mL/min/1.73m2) 01/01/24 05:30 Calcium 7.7 mg/dL (8.5-10.1) L 01/01/24 05:30 Albumin 2.8 g/dL (3.4-5.0) L 01/01/24 05:30 Glucose 121 mg/dL (74-106) H 01/01/24 05:30 Liver Function Panel: Alanine Aminotransferase (ALT/SGPT) 19 U/L (16-63) 01/01/24 05:30 Aspartate Amino Transf (AST/SGOT) 9 U/L (15-37) L 01/01/24 05:30 Coagulation Panel: No Data to Display Cardiac Panel: No Data to Display Arterial Blood Gas: No Data to Display Venous Blood Gas: No Data to Display Pancreas Panel: No Data to Display Thyroid Panel: No Data to Display Infectious Disease: No Data to Display Blood Cultures: No Data to Display Toxicology Panel: No Data to Display Imaging and Studies Imaging and Studies Study information below may be from another EMR and interpreted by another provider. Please see original notes in EMR for more complete details. Stress Test Summary: Patient Name: Santos Chavez Unit #: [id number] Loc: DI Ordering Provider: Taryn Nichole Status: REG CLI Primary Care Provider: Date of Exam: 05/25/23 Sex: M Admission Date: 05/25/23 : 1950 Age: 73 APPROVED REPORT Exam: Exercise Treadmill Patient Location: Out-Patient Room/Bed: Stress Nurse: Jody Wallis RN Ordering Provider:TARYN NICHOLE, Contact Number: [phone] BMI: 32.48 Baseline Rhythm: Sinus Bradycardia Comment: Frequent PAC's and PVC's Indications: Lightheadedness, dyspnea, HTN Medical History Medical History: HLD, HTN, ETOH use, dyspnea, lightheadedness Cardiac Medications: Vitamin D2, rosuvastatin, diazepam, aspirin, naltrexone, atenolol losartan, clorthalidone Allergies: NKA Cardiac Risk Factors: Family hx, HTN, HLD, chewing tobacco Previous Cardiac Procedures: None Pretest Chest Pain Characteristics: 1/10 chest ache Exercise History: Indeterminate Physical Disabilities: None Lung Sounds: Clear to auscultation Heart Sounds: Regular Stress Test Details Test: Exercise stress testing was performed using a Anirudh protocol. Nuclear Acquisition: Rest Tc-99m/Stress Tc-99m 1 day Rest Isotope: Tc-99m Sestamibi. Dose: 10.5 Date: 05/25/2023 Injection Time: 1105 Stress Isotope: Tc-99m Sestamibi. Dose: 32.0 Date: 05/25/2023 Injection Time: 1240 HR Resting HR Supine: 58 bpmMax Heart Rate (APMHR): 149.030133 bpm Resting HR Standin bpmTarget HR (85% APMHR): 126.441585 bpm Max HR Achieved: 143 bpm % of APMHR: 95.97 Recovery HR: 82 bpm HR response to stress: Normal HR response to stress BP Resting BP Supine: 182/90 mmHg Resting BP Standin/80 mmHg Max BP: 190/90 mmHg Recovery BP: 170/90 mmHg BP response to stress: Normal blood pressure response to stress. ECG Resting ECG: Sinus Bradycardia Ectopy: Frequent PAC's and PVC's Stress ECG: Sinus Tachycardia ST Change: No significant ST segment changes noted Arrhythmia: Frequent PAC's and PVC's Recovery ECG: Sinus Rhythm Recovery ST Change: No significant ST segment changes noted Recovery Arrhythmia: Occasional PAC's and PVC's Clinical Reason for Termination: Target HR Achieved, Fatigue Stress Symptoms: 3/10 chest pressure, general fatigue Exercise duration: 04 min59 sec Highest Stage Reached: Stage 2: 2.5 mph at 12% grade. Exercise capacity: 7.03 METs Angina Score: Non-Limiting Noland Treadmill Score: 0.7 Rate Pressure Product: 06704 Stress ECG Conclusion 1. The resting electrocardiogram was within normal limits 2. The patient exercised on a Anirudh protocol completed a workload of 7 METS. Normal heart rate response to exercise. Hypertension was present at rest. The patient achieved 96% of predicted heart rate for age 3. There was no electrocardiographic evidence of myocardial ischemia 4. Atrial and ventricular ectopic beats were noted 5. See MPI report Noland Treadmill Score is 0.7 which is Moderate risk. Stress Test Summary STAGETime (mins)Speed (mph)Grade (%)[id number] Thwriu39239/90 Jbtciqzz77871/80 131.328619634/883-4/10 chest pressure, general fatigue4.5 588.4027922-4/10 chest pressure, general fatigue7 1 min ajsfrtow242755/903-4/10 chest pressure, general fatigue 3 min ecgptzvc02508/96 6 min obsxkyxy28180/78577Jrd symptoms resolved. MPI Conclusion Myocardial perfusion is normal. There is no ischemia or evidence of prior infarction Ejection fraction is 59%, wall motion is normal Radiologist Interpretation Radiologist agrees with Middleware Consultant's Interpretation. Radiologist Interpretation by: Riky Munguia MD Interpretation Date/Time: 05/27/2023 18:44:04 Ordered By: Taryn Nichole CC: AKIRA MO,LORENA BOBO Dictated By: Lorena May M.D. 05/25/23 1324 <Electronically signed by Lorena May M.D. in OV> 05/28/23 0805 Transcribed By: Lorena May MD This is privileged, confidential information intended only for the provider named. Any use or distribution by any person other than this provider is strictly prohibited. If you receive this report in error, please notify us immediately at [phone] and return the original report to us at the address above. Thank-you. Echocardiogram Summary: Patient Name: Santos Chavez Unit #: [id number] Loc: Ordering Provider: Taryn Nichole Status: REG [facility] Primary Care Provider: Unknown,Unknown Date of Exam: 04/07/23 Sex: M Admission Date: 04/07/23 : 1950 Age: 73 APPROVED REPORT EXAM: Comprehensive 2D, Doppler, and color-flow Echocardiogram Patient Location: Out-Patient [employer] Librarian: Rich Grimaldo RDMS, RVParul Indications: lightheadedness, dyspnea Other Information Study Quality: Fair Conclusion Normal left ventricular wall thickness and chamber size. Ejection fraction is 55%. There are no segmental wall motion abnormalities Normal right ventricular size and systolic function Both atria are normal in size Aortic valve is mildly sclerotic and trileaflet without stenosis or regurgitation Estimated right ventricular systolic pressure is 37 mmHg Mildly dilated ascending aorta measuring 3.84 cm Wall motion Left Ventricle The left ventricle is normal size. Left ventricular systolic function is normal There is normal left ventricular wall thickness. There are no segmental wall motion abnormalities There is no ventricular septal defect visualized. LVEF is 55%. Right Ventricle The right ventricle is normal size. Right ventricular systolic function is grossly normal. The RVSP is 37.4 mmHg. Atria The left atrium size is normal. The right atrium size is normal. The interatrial septum is intact with no evidence for an atrial septal defect. Aortic Valve The aortic valve is mildly sclerotic Aortic valve is trileaflet. There is no aortic valvular stenosis. No aortic regurgitation is present. Mitral Valve The mitral valve is normal in structure. No evidence of mitral valve stenosis. Trace mitral regurgitation. Tricuspid Valve The tricuspid valve is normal in structure. There is no tricuspid valve stenosis. Trace tricuspid regurgitation. Pulmonic Valve The pulmonary valve is normal in structure. There is no pulmonic valvular stenosis. Mild pulmonic regurgitation. Great Vessels The aortic root is normal in size. The ascending aorta is mildly dilated. Aortic arch is not well visualized. IVC is normal in size and collapses >50% with inspiration. Pericardium There is no pericardial effusion. 2D Dimensions IVSD d PLAX 0.75 cm M: 0.6-1.2LV Vol A2C d MOD 85.3 mL LVPW d PLAX 0.75 cm M: 0.6 - 1.2LV Vol A4C d MOD 106.3 mL LVID d PLAX 5.31 cm M: 4.2 - 5.8LV EF A4C MOD 46.4 % LVDs 4.00 cm M: 2.5 - 4.0LV EF A2C MOD 50.1 % Ao Root d 3.51 cm M: 3.1 - 3.7LV EF Biplane MOD 49.1 % Ao Asc Diam d 3.84 cm M: 2.6 - 3.4SV50.24 mL LV EF Teichholz 47.5 %SV Index23.45 mL/m2 LVEF (Gu's)49.10 % M: 52 - 72 LV Ysfhsn02.04 mL M: 62 - 150 LV Volume Index35.06 mL/m2 M: 34 - 74 LV Vol Biplane MOD 102.3 mL FS24.00 % M-Mode TAPSE 2.53 cm (M/F) >1.7 LV Diastology MV E' medial0.124 (>0.07 m/s)E/A Ratio 1.1 LV E/e MED7.75 (<14)MV E Vmax 0.96 (0.4-1.3 m/s) MV E' lateral0.093 (>0.1 m/s)MV A Vmax 0.85 (0.4-1.3 m/s) LV E/e LAT10.35 (<14)MV E/A Ratio 1.11 MV E/E' medial 7.78 MV E/E' bhjfrsu28.37 Aortic Valve LVOT Area3.88 cm2AoV Area Vmax3.14 cm2 LVOT Vmax 1.20 m/sAoV Area/ BSA (Vmax)1.46 cm2/m2 LVOT Mean Warner.0.77 m/sAVA Mean Warner.2.93 cm2 LVOT Peak Grad 5.8 mmHgAVA Mean Warner. Index1.37 cm2/m2 LVOT Mean Grad 2.8 mmHg LVOT VTI0.265 m LVOT Diam s 2.20 cm AoV Vmax1.49 m/s Velocity Ratio 0.81 AoV Mean Warner.1.02 m/s AoV Peak Grad8.8 mmHg LVOT SV 102.90 mL AoV Mean Grad4.7 mmHg AoV VTI0.319 m AoV Area VTI3.23 cm2 AoV Area/ BSA (VTI)1.51 cm/m2 Mitral Valve MV DT 133 (160-240 msec) MV PHT38 msec MV Area PHT 5.72 cm2 MV VTI 0.320 m MV Area VTI 3.22 (4.0-6.0 cm2) Pulmonary Valve PV Vmax 1.30 (0.5-1.5 m/s)RVOT Peak Gr.1.91 mmHg PV Peak Grad 6.8 mmHgRVOT Mean Gr.1.10 mmHg PV Mean Grad 3.6 mmHgRVOT VTI0.154 m PV VTI 0.266 mRVOT Vmax 0.69 m/s Tricuspid Valve TR Peak Grad 34.4 mmHgTR Vmax 2.93 m/s RA Pressure 3.00 mmHg RVSP (TR) 37.4 mmHg Ordered By: Taryn Nichole CC: Dictated By: Lorena May M.D. 04/07/23 1256 <Electronically signed by Lorena May M.D. in [place]> 04/08/23 0778 Transcribed By: Lorena May MD This is privileged, confidential information intended only for the provider named. Any use or distribution by any person other than this provider is strictly prohibited. If you receive this report in error, please notify us immediately at [phone] and return the original report to us at the address above. Thank-you. Carotid Artery Summary:: Patient Name: Santos Chavez Unit #: [id number] Loc: DI Ordering Provider: Taryn Nichole Status: REG CLI Primary Care Provider: Date of Exam: 06/15/23 Sex: M Admission Date: 06/15/23 : 1950 Age: 73 Exam(s) US CAROTID EXAM: US CAROTID CLINICAL HISTORY: LIGHTHEADEDNESS,R42, FAMILY H/O CAROTID ARTERY STENOSIS. TECHNIQUE: Ultrasound carotids performed using grayscale, color-flow, and spectral Doppler imaging. COMPARISON: No exams were available for comparison FINDINGS: RIGHT CAROTID ARTERY: Plaque: Mild calcific plaque is seen in the carotid bulb and proximal right ICA. Velocity elevation: None. LEFT CAROTID ARTERY: Plaque: Mild calcific plaque is seen in the carotid bulb and proximal left ICA. Velocity elevation: None. VERTEBRAL ARTERIES: Antegrade flow. Measurements: R Bulb: 56.9cm/s PS / 15.4cm/s ED R CCA: 86.7cm/s PS / 21.9cm/s ED R ECA: 100.9cm/s PS / 14.1cm/s ED R ICA Prox: 102cm/s PS / 25.4cm/s ED R ICA Mid: 114.8cm/s PS / 25.4cm/s ED R ICA Distal: 92.4cm/s PS /25.2cm/s ED R Vert: 45cm/s PS / 15.3cm/s ED R SVR: 1.3 R DVR: 1.2 L Bulb: 54.4cm/s PS / 13.2cm/s ED L CCA: 93cm/s PS / 20.7cm/s ED L ECA: 81.1cm/s PS / 13.2cm/s ED L ICA Prox: 80.1cm/s PS / 21.7cm/s ED L ICA Mid: 94.7cm/s PS / 29cm/s ED L ICA Distal: 86.9cm/s PS / 26.8cm/s ED L Vert: 47.1cm/s PS / 15.6cm/s ED L SVR: 1 L DVR: 1.4 IMPRESSION: No evidence for hemodynamically significant carotid stenosis. Criteria for Carotid Stenosis: Normal: ICA PSV <125 cm/s no plaque or intimal thickening is visible. <50% stenosis: ICA PSV <125 cm/s and plaque or intimal thickening is visible. 50-69% stenosis: ICA PSV is 125-250 cm/s and plaque is visible. >70% stenosis to near occlusion: ICA PSV >250 cm/s with visible plaque and luminal narrowing. DATA REPOSITORY: Ordered By: Taryn Nichole CC: Dictated By: Yefri Sepulveda M.D. 06/15/23921 <Electronically signed by Yefri Sepulveda M.D. in [place]> 06/15/23921 Transcribed By: Yefri Sepulveda This is privileged, confidential information intended only for the provider named. Any use or distribution by any person other than this provider is strictly prohibited. If you receive this report in error, please notify us immediately at [phone] and return the original report to us at the address above. Thank-you. Anesthesia Assessment and Plan Anesthesia History Personal History: No History of Anesthesia Complications Family History: No Family History of Anesthesia Complications Exercise Tolerance Exercise Tolerance: Metabolic Equivalents>4 Cardiac & Pulmonary Exam Cardiac Exam: Normal S1/S2 Heart Sounds Pulmonary Exam: Clear Bilateral Breath Sounds Implantable Cardiac Device Does patient have a Pacemaker or an ICD?: No Airway Exam Known Difficult Airway: No Mallampati Class: 3 Mouth Opening: Normal (> 3cm) Thyromental Distance: Greater than 3 cm Neck Range of Motion: Full ROM Neck Circumference: Normal Teeth Condition: Generalized Poor Dentition and Loose or Chipped Airway Comments: Multiple missing teeth, some chipped and broken ASA Classification ASA Score: ASA 4 Emergency Case?: Yes NPO Status NPO Status: NPO Clears >2 hours, Solids >8 hours and Full Stomach Anesthesia Plan Resuscitation Status: Full Code Anesthesia Technique: General Anesthesia Airway Planned: Endotracheal Tube Monitors Used: Standard Monitors and Arterial Line Preoperative Comments:: Briefly spoke with patient to review pertinent history given active resuscitation in ICU before surgery. Discussed possibility of adding central line +/- remaining on ventilator after surgery.
--- NOTE | 2024-01-01 11:00 | BOWEL_PTH ---
PATIENT: Santos Chavez LOC: ICU U#:[id number] AGE/SX: 73/M ROOM: ICU.219 RE12/31/[address]: Ronnie Sepulveda MD : 1950 BED: A DIS: 01/04/2024 SPEC #: [id number] RECD: 01/03/24 13:09 STATUS: BRIANA REQ #: [id number] SUNDAY: 01/01/24 11:[address]: Ronnie Sepulveda DEPT: Surgical Specimen RECD BY: Ondina Ayala ENTERED: 01/03/24 13:10 SP TYPE: Bowel OTHR DR: Taryn Nichole Tissues: 1 - BOWEL RESECTION(OTHER) Procedures: GROSS AND MICRO LEVEL 5 Comments: [id number]
--- NOTE | 2024-01-01 12:34 | W.PM.PROGNOT ---
Date of Service Date of service: 01/01/24 Time of Service: 13:00 Assessment and Plan Assessment and plan (1) Hemorrhage of surgical anastomosis site of digestive tract: Status: Acute (2) Hyperlipidemia: Status: Acute (3) Hypotension: Status: Resolved (4) Essential hypertension: Status: Acute (5) Alcohol abuse: Status: Chronic (6) Snoring: Status: Acute (7) S/P right hemicolectomy: (8) S/P exploratory laparotomy: Status: Acute Assessment and plan: The patient is doing well post-op. Their pain is well controlled. They are having no nausea or vomiting. The pt is not having any chest pain or SOB, productive cough; no calf pain or swelling. The pt is making better urine. The pt pain is adequately controlled. The case was discussed with nursing and patient?s progress reviewed. All of the pt's home medications were addressed and adjusted accordingly for their oral intact status. HEENT: no jaundice. no eye pain/drainage/redness/swelling. Mild sore throat Cardio- NSR no chest pain, BP stable. Pulm: no sob or productive cough. no hemoptysis Incision- clean/dry. Dressing intact no excessive bleeding or drainage minimal output from NG tube I discussed with the patient and/or there family about the findings in surgery-bleeding at the anastomosis. This was revised and the handsewn anastomosis was done. No colostomy. No drains. Liver did not show any signs of advanced cirrhosis. There was no intra-abdominal bleeding. And the pt's progress. We reviewed expectations for progress in the hospital; what the pt could expect for recovery time and length of stay. We discussed the importance of walking and pulmonary toilet to avoid blood clots and pneumonia. Continue current plans for pulmonary toilet, GI and DVT prophylaxis. We shall continue the current plan for pain management as it is at an appropriate level, and working well for the pt. Appropriate measures will be taken for constipation prevention, and this was also reviewed with the pt. The wound care plan was reviewed with nursing as well. Labs were ordered. And reviewed. see orders Objective Last Vital Signs Temp 36.8 C 01/01/24 07:46 Pulse 63 01/01/24 07:46 Resp 18 01/01/24 07:46 BP 129/46 L 01/01/24 07:46 Pulse Ox 95 01/01/24 07:46 Laboratory Results - last 24 hr 01/01/24 05:30 WBC 10.61 RBC 3.25 L Hgb 10.2 L Hct 30.0 L MCV 92 MCH 31.4 MCHC 34.0 RDW 12.0 Plt Count 163 MPV 11.2 H Immature Gran % 0.5 Neutrophils % 83.1 Lymphocytes % 9.2 Monocytes % 7.1 Eosinophils % 0.0 Basophils % 0.1 Nucleated RBC % 0.0 Absolute Neutrophils 8.82 H Absolute Lymphocytes 0.98 L Absolute Monocytes 0.75 Absolute Eosinophils 0.00 Absolute Basophils 0.01 Sodium 137 Potassium 4.0 Chloride 102 Carbon Dioxide 23.6 Anion Gap 11.4 H BUN 27 H Creatinine 2.1 H Est GFR (CKD-EPI 2020) 33.03 Glucose 121 H Calcium 7.7 L Total Bilirubin 0.5 AST 9 L ALT 19 Alkaline Phosphatase 47 Total Protein 5.6 L Albumin 2.8 L Patient ABO/Rh B Positive Antibody Screen NEGATIVE Crossmatch See Detail PAWSS Have you Been Recently Intoxicated or Drunk Within the Last 30 days?: Yes Have you Ever Experienced Previous Episodes of Alcohol Withdrawal?: No Have you ever Experienced Withdrawal Seizures?: No Have you ever Experienced Delirium Tremens(DT)s?: No Have you ever undergone Alcohol Rehabilitation Treatment (i.e, inpt ot outpatient treatment programs)?: No Have you ever Experienced Blackouts?: No Have you ever Combined Alcohol with other Downers within the last 90 days?: No Have you ever Combined Alcohol with any other Substance of Abuse during the last 90 days?: No Positive Blood Alcohol level on Presentation? [PCS.BAL]: No Evidence of Increased Autonomic Activity (i.e. HR>120, tremor, sweating, agitation, nausea)?: No Result: 1 Time Spent with Patient Time Spent with Patient: 35-49 minutes Time was spent: preparing to see the patient(eg.review tests), obtaining and/or reviewing separately otained hiistory, ordering medications,tests, procedures, referring, communicating with other health healthcare applications analyst, indepentently interpreting results, counseling the patient and care coordination
[2024-01-01 12:38] LABS: HCT 32.9 % (40.0-50.0); HGB 11.1 g/dL (13.5-17.5); MCH 30.7 pg (27.0-33.0); MCHC 33.7 % (32.0-36.0); MCV 91 fL (80-95); MPV 10.6 fL (8.0-11.0); Platelet Count 119 10^3/uL (130-400); RBC 3.61 10^6/uL (4.36-5.78); RDW 13.2 % (11.8-14.1); RDW-SD 45.3 fL; WBC 12.14 10^3/uL (4.4-10.8)
--- NOTE | 2024-01-01 12:43 | ROE_ITS ---
Date of service: 01/01/24 Time of Service: 12:43 Operative Note Operative Note DATE OF PROCEDURE: 01/01/24 PRE-OP DIAGNOSIS: Hemorrhagic shock POST-OP DIAGNOSIS: other (Hemorrhagic shock from anastomotic bleeding) PROCEDURE: Diagnostic colonoscopy, laparotomy with revision of ileocolic anastomosis SURGEON: Ronnie Sepulveda ASSISTING SURGEON: Gayle Chilel ANESTHESIA TYPE: Local By Surgeon and General LMA/ETT Refer to Anesthesia Record ESTIMATED BLOOD LOSS: 25 PATHOLOGY: other (Ileocolic anastomosis) COMPLICATIONS: None Patient was transported to: ICU Patient's condition: stable Indications: Santos is a 73-year-old male who underwent laparoscopic right hemicolectomy the day prior. Early this morning, he had an episode of bright red blood per rectum, with subsequent hypotension. Morning labs supported the diagnosis of acute blood loss anemia. He was resuscitated with blood product, and in light of his hypotension, the decision was made to bring him to the operating room for colonoscopy, and what other interventions would be needed to stop the bleeding. Findings: Bleeding from the staple line of his ileocolic anastomosis Procedure Description: Patient was brought to the operating room, moved onto the OR table. General endotracheal anesthesia was induced. Once asleep, the patient was moved to frog-leg position. Colonoscope was introduced into the rectal vault which was filled with blood. This was irrigated clean, and the scope was gently advanced up around the splenic flexure to the anastomosis. Around the midportion of the transverse colon, there was a large amount of relatively new blood, as well as well-established blood clot. Despite copious irrigation, and manipulation of the blood clot, we are not able to adequately visualize the source of bleeding. Therefore, I felt the safest thing to do is to move forward with reopening of his incision, and direct inspection and likely revision of his ileocolic anastomosis. He was placed back in supine position, and the anterior abdominal wall was prepped and draped in the usual fashion. I cut into the old incision and dissected down to the fascia. Fascial closure sutures were with scissors. The incision was opened along its length, and extended towards the head a few centimeters. An Truman wound protector was placed. There was no blood in the peritoneal cavity, and the ileocolic anastomosis was easily delivered up into the operative field. The tissue appeared healthy and viable. There were no areas of ischemia. There was no evidence of any leakage of the anastomosis. Blood clot could be palpated within the lumen. This was an antiperistaltic [id number] stapled anastomosis. Small defects were created on the mesenteric side of the ileum as well as the colon just a few centimeters beyond the closure of the common ileal colotomy. Great care was taken to spare as much normal healthy tissue as possible. The a ferret and E ferret limbs of this anastomosis were then divided with a KAMI stapler. Mesentery was then divided with sequential fires of the LigaSure. There was a small amount of bleeding from the staple line along the small bowel division which was oversewn. It was hemostatic after that. By this point, Santos was doing well, and off of any vasoactive medications. I felt it was safe to proceed with creation of a new anastomosis. In light of the fact that there was no significant contaminat ion, and that his shock state was certainly improved if not resolved, I did not feel the need to protect the new anastomosis with any type of diverting ileostomy. In order to minimize the likelihood of any recurrent anastomotic complications, I felt that creation of a new ileocolostomy by way of a handsewn anastomosis would be the safest option. Similar to the day before, the most favorable alignment seem to be a [id number] antiperistaltic ileocolostomy. Therefore, the tissue was arranged in this way, and stay sutures were placed on the antimesenteric sides of both the small bowel as well as the colon. Next, using electrocautery, I created a colotomy and ileotomy of similar size. 3-0 PDS suture was used to create a watertight mucosal anastomosis. The front wall was closed with running Jamari stitches. The font and back larry were then buttressed with imbricating silk sutures. The staple lines of the diveded ileum and colon were also imbricated with interrupted silk in order to minimize complications. The anastomosis was then allowed to drop down to its normal anatomic position. It was healthy, there was no tension on it. All the tissue was viable. Peritoneal cavity was then irrigated, and the greater omentum was layered over the anastomosis and the adjoining small bowel. The wound protection device was then removed, and the fascia was closed with running 2-0 PDS stitches. Skin and soft tissues were irrigated and infiltrated with local anesthetic. The deep soft tissues were approximated with interrupted Vicryl stitches, and the skin was closed with surgical stapler. A tammy negative pressure wound therapy device was then applied. Patient was then extubated and transferred back up to the surgical intensive care unit for further resuscitation and monitoring. I briefly explained the findings of the operation, as well as the remedy to the patient. I have the patient's family and reviewed the operative findings. I answered all their questions to the best my ability.
[2024-01-01 12:49] LABS: Calcium 7.4 mg/dL (8.5-10.1)
[2024-01-01 12:50] LABS: Magnesium 1.7 mg/dL (1.8-2.4)
[2024-01-01 12:56] LABS: INR 1.2 (0.9-1.1); PTT Activated 26.6 sec (23.6-32.8); Prothrombin Time 11.5 sec (9.1-11.1)
[2024-01-01 13:00] LABS: ALT 18 U/L (16-63); AST 19 U/L (15-37); Albumin 2.7 g/dL (3.4-5.0); Alkaline Phosphatase 45 U/L (46-116); Anion Gap 8.3 mmol/L (3-11); BUN 26 mg/dL (7-18); Bilirubin, Total 1.2 mg/dL (0.2-1.0); CO2 24.7 mmol/L (21.0-32.0); CREATININE 1.8 mg/dL (0.70-1.30); Calcium 7.5 mg/dL (8.5-10.1); Chloride 101 mmol/L (98-107); Estimated GFR 39.75 (mL/min/1.73m2); Glucose 130 mg/dL (74-106); Potassium 4.2 mmol/L (3.5-5.1); Sodium 134 mmol/L (136-145); Total Protein 5.4 g/dL (6.4-8.2)
[2024-01-01] MEDS: HYDROmorphone 2 MG/ML SYR 0.5 MG IVP (13:45)
[2024-01-01] MEDS: ACETAMINOPHEN 1,000 MG/100 ML BTL 400 MG IVPB ×2 (14:12→23:13)
[2024-01-01] MEDS: Lactated Ringers 1,000 ML 80 ML IV (14:16)
[2024-01-01] MEDS: MAGNESIUM SULFATE 1 GM/100 ML BAG IVINF (14:21)
[2024-01-01] MEDS: Famotidine 20 MG/2 ML VIAL IVP (18:19)
[2024-01-01 20:19] LABS: HCT 28.1 % (40.0-50.0); HGB 9.8 g/dL (13.5-17.5)
[2024-01-01] MEDS: Benzocaine/Menthol LOZG 15/BOX 1 EACH SUC ×2 (22:28→23:19)
[2024-01-01] MEDS: Normal Saline Flush 10 ML SYR IVP (23:13)
[2024-01-02] VITALS (48 sets, daily range): BP systolic 121–157; BP diastolic 54–71; PULSE 56–84; RESP 10–23; TEMP 36.5–36.8; O2SAT 86–97
[2024-01-02] MEDS: Lactated Ringers 1,000 ML 80 ML IV (00:59)
[2024-01-02 06:21] LABS: Abs Immature Grans 0.05 10^3/uL (0.0-0.06); Absolute Basophil Count 0.01 10^3/uL (0.0-0.2); Absolute Eosinophil Count 0.01 10^3/uL (0.0-0.7); Absolute Lymphocyte Count 1.65 10^3/uL (1.2-3.4); Absolute Monocyte Count 0.69 10^3/uL (0.1-0.8); Absolute Neutrophil Count 6.53 10^3/uL (1.2-6.7); Basophils % 0.1; Eosinophils % 0.1; HCT 28.1 % (40.0-50.0); HGB 9.7 g/dL (13.5-17.5); Immature Grans % 0.6; Lymphocytes % 18.5; MCH 30.4 pg (27.0-33.0); MCHC 34.5 % (32.0-36.0); MCV 88 fL (80-95); MPV 11.4 fL (8.0-11.0); Monocytes % 7.7; Platelet Count 103 10^3/uL (130-400); RBC 3.19 10^6/uL (4.36-5.78); RDW 13.5 % (11.8-14.1); RDW-SD 43.3 fL; WBC 8.94 10^3/uL (4.4-10.8)
[2024-01-02 06:30] LABS: INR 1.1 (0.9-1.1); Prothrombin Time 10.9 sec (9.1-11.1)
[2024-01-02 06:40] LABS: Anion Gap 8.6 mmol/L (3-11); BUN 28 mg/dL (7-18); CO2 25.4 mmol/L (21.0-32.0); CREATININE 1.5 mg/dL (0.70-1.30); Calcium 7.8 mg/dL (8.5-10.1); Chloride 105 mmol/L (98-107); Estimated GFR 49.47 (mL/min/1.73m2); Glucose 94 mg/dL (74-106); Magnesium 1.7 mg/dL (1.8-2.4); Potassium 3.8 mmol/L (3.5-5.1); Sodium 139 mmol/L (136-145); Troponin I < 50 ng/L (< or =60)
[2024-01-02] MEDS: Famotidine 20 MG/2 ML VIAL IVP (06:40)
[2024-01-02] MEDS: Normal Saline Flush 10 ML SYR IVP ×3 (06:41→21:45)
[2024-01-02] MEDS: ACETAMINOPHEN 1,000 MG/100 ML BTL 400 MG IVPB ×2 (06:42→21:44)
--- NOTE | 2024-01-02 10:48 | W.PM.PROGNOT ---
Date of Service Date of service: 01/02/24 Time of Service: 10:48 Assessment and Plan Assessment and plan (1) Alcohol abuse: Status: Chronic Assessment and plan: liver does not show cirrhosis (2) Essential hypertension: Status: Acute (3) Hyperlipidemia: Status: Acute (4) Hemorrhage of surgical anastomosis site of digestive tract: Status: Acute Assessment and plan: resolved (5) S/P exploratory laparotomy: Status: Acute Assessment and plan: pain controlled POD2/1 Patient is doing remarkably well. A-line and catheter and NG tube out. Patient is up in a chair. He is hungry and would like to try some fluids. Pain plan adjusted Case reviewed with nursing Clears as tolerated. Will continue to observe patient in ICU overnight. If no further problems, transfer to [facility] in a.m. (6) Tubular adenoma: Status: Acute Subjective Subjective Interval history since last seen: Pt is doing well. no headaches. No CP or SOB. no productive cough. no dysuria. no leg pain or swelling. pt tolerating water up in chair +BM no blood pain controlled. BP and labs stable no further bleeding Exam Narrative Exam Narrative: PHYSICAL EXAM GENERAL APPEARANCE: Alert, healthy appearance, oriented, x 3,? in no acute distress HYDRATION: Well hydrated HEAD, EYES, EARS, NECK, THROAT: Head is normocephalic, pupils equal, round, reactive to light and accommodation, ocular movement intact, sclera clear and no jaundice. ?Dentition intact. No sore throat.. No thrush LUNGS: normal respiration/normal chest excursion. ?Clear to auscultation bilaterally. ?No wheeze. ?HEART: Regular rate and rhythm. no murmurs EXTREMITY: No edema .? no leg pain, redness, swelling.? ABDOMEN: incision covered w/ PICOS. no strikethrough. ? Normal bowel sounds.? Objective Last Vital Signs Temp 36.5 C 01/02/24 05:15 Pulse 58 L 01/02/24 09:43 Resp 11 L 01/02/24 09:44 BP 128/67 01/02/24 09:43 Pulse Ox 94 01/02/24 09:44 Laboratory Results - last 24 hr 01/01/24 01/01/24 01/01/24 05:30 12:19 12:21 WBC 12.14 H RBC 3.61 L Hgb 11.1 L Hct 32.9 L MCV 91 MCH 30.7 MCHC 33.7 RDW 13.2 Plt Count 119 L MPV 10.6 Immature Gran % Neutrophils % Lymphocytes % Monocytes % Eosinophils % Basophils % Nucleated RBC % Absolute Neutrophils Absolute Lymphocytes Absolute Monocytes Absolute Eosinophils Absolute Basophils PT 11.5 H INR 1.2 H APTT 26.6 Sodium 134 L Potassium 4.2 Chloride 101 Carbon Dioxide 24.7 Anion Gap 8.3 BUN 26 H Creatinine 1.8 H Est GFR (CKD-EPI 2020) 39.75 Glucose 130 H Calcium 7.5 L Magnesium 1.7 L Total Bilirubin AST ALT Alkaline Phosphatase Troponin I Total Protein Albumin Patient ABO/Rh B Positive Antibody Screen NEGATIVE Crossmatch See Detail 01/01/24 01/01/24 01/02/24 12:21 20:00 05:30 WBC 8.94 RBC 3.19 L Hgb 9.8 L 9.7 L Hct 28.1 L 28.1 L MCV 88 MCH 30.4 MCHC 34.5 RDW 13.5 Plt Count 103 L MPV 11.4 H Immature Gran % 0.6 Neutrophils % 73.0 Lymphocytes % 18.5 Monocytes % 7.7 Eosinophils % 0.1 Basophils % 0.1 Nucleated RBC % 0.0 Absolute Neutrophils 6.53 Absolute Lymphocytes 1.65 Absolute Monocytes 0.69 Absolute Eosinophils 0.01 Absolute Basophils 0.01 PT 10.9 INR 1.1 APTT Sodium 139 Potassium 3.8 Chloride 105 Carbon Dioxide 25.4 Anion Gap 8.6 BUN 28 H Creatinine 1.5 H Est GFR (CKD-EPI 2020) 49.47 Glucose 94 Calcium 7.4 L 7.8 L Magnesium 1.7 L Total Bilirubin 1.2 H AST 19 ALT 18 Alkaline Phosphatase 45 L Troponin I < 50 Total Protein 5.4 L Albumin 2.7 L Patient ABO/Rh Antibody Screen Crossmatch PAWSS Have you Been Recently Intoxicated or Drunk Within the Last 30 days?: Yes Have you Ever Experienced Previous Episodes of Alcohol Withdrawal?: No Have you ever Experienced Withdrawal Seizures?: No Have you ever Experienced Delirium Tremens(DT)s?: No Have you ever undergone Alcohol Rehabilitation Treatment (i.e, inpt ot outpatient treatment programs)?: No Have you ever Experienced Blackouts?: No Have you ever Combined Alcohol with other Downers within the last 90 days?: No Have you ever Combined Alcohol with any other Substance of Abuse during the last 90 days?: No Positive Blood Alcohol level on Presentation? [PCS.BAL]: No Evidence of Increased Autonomic Activity (i.e. HR>120, tremor, sweating, agitation, nausea)?: No Result: 1 Time Spent with Patient Time Spent with Patient: 25-34 minutes Time was spent: preparing to see the patient(eg.review tests), obtaining and/or reviewing separately otained hiistory, ordering medications,tests, procedures, referring, communicating with other health physician primary care sports medicine, indepentently interpreting results, counseling the patient and care coordination
--- NOTE | 2024-01-02 11:22 | W.ANESPOSTOP ---
Postoperative Evaluation Date, Time and Location Date Performed: 01/02/24 Time Performed: 11:23 Patient Location: Intensive Care Unit Vital Signs Most Recent Imported Vital Signs: Most Recent Vital Signs Temp Pulse Resp BP Pulse Ox 36.5 C 58 L 11 L 128/67 94 01/02/24 05:15 01/02/24 09:43 01/02/24 09:44 01/02/24 09:43 01/02/24 09:44 Most Recent Vital Signs Temp Pulse Resp BP Pulse Ox 36.5 C 48 L 17 116/52 L 98 12/31/23 13:10 12/31/23 13:10 12/31/23 13:10 12/31/23 13:10 12/31/23 13:10 Pain Score Most Recent Pain Score: Most Recent Pain Score Pain Level 0 01/02/24 05:15 Assessment Mental Status: Awake (Alert & Oriented to Patient Baseline) Airway and Respiratory Function: Patent airway with normal (patient baseline) respiratory exam Cardiovascular Function: Hemodynamically Stable Hydration Status: Adequately Hydrated Nausea & Vomiting: No Nausea or Vomiting Pain: Pain is tolerable per patient Peripheral Nerve Block: Patient did not receive a nerve block
[2024-01-02] MEDS: Magnesium Oxide 400 MG TAB 800 MG PO (16:42)
--- NOTE | 2024-01-02 17:30 | RT.EKG_ITS ---
APPROVED REPORT Exam: Resting ECG Reason for Exam: dizzy spells Patient Location: I HR:63 bpm ECG Measurements Heart Rate 63 AXIS SC 176 P 47 QRSd 100 QRS 1 QT 415 T 14 QTc 425 Conclusion Sinus rhythm...normal P axis, V-rate 50- 99 early transition...QRS area>0 in V2 Baseline wander in lead(s) V2
[2024-01-02 18:04] LABS: HCT 27.3 % (40.0-50.0); HGB 9.2 g/dL (13.5-17.5)
[2024-01-02 18:23] LABS: Troponin I < 50 ng/L (< or =60)
[2024-01-03] VITALS (13 sets, daily range): BP systolic 130–166; BP diastolic 62–111; PULSE 55–73; RESP 14–23; TEMP 36.8–38.3; O2SAT 95–98
[2024-01-03] MEDS: ACETAMINOPHEN 1,000 MG/100 ML BTL 400 MG IVPB (06:15)
[2024-01-03 06:59] LABS: Abs Immature Grans 0.02 10^3/uL (0.0-0.06); Absolute Basophil Count 0.04 10^3/uL (0.0-0.2); Absolute Eosinophil Count 0.21 10^3/uL (0.0-0.7); Absolute Lymphocyte Count 1.29 10^3/uL (1.2-3.4); Absolute Neutrophil Count 3.39 10^3/uL (1.2-6.7); Basophils % 0.7; Eosinophils % 3.9; HGB 9.1 g/dL (13.5-17.5); Immature Grans % 0.4; Lymphocytes % 23.7; MCH 30.2 pg (27.0-33.0); MCHC 33.7 % (32.0-36.0); MCV 90 fL (80-95); MPV 11.4 fL (8.0-11.0); Monocytes % 9.2; Neutrophils % 62.1; RBC 3.01 10^6/uL (4.36-5.78); RDW 13.3 % (11.8-14.1); RDW-SD 43.8 fL; WBC 5.45 10^3/uL (4.4-10.8)
[2024-01-03 07:32] LABS: Anion Gap 6.7 mmol/L (3-11); BUN 18 mg/dL (7-18); CO2 27.3 mmol/L (21.0-32.0); CREATININE 1.1 mg/dL (0.70-1.30); Chloride 108 mmol/L (98-107); Estimated GFR 71.77 (mL/min/1.73m2); Ferritin 878 ng/mL (26-388); Glucose 88 mg/dL (74-106); Magnesium 1.5 mg/dL (1.8-2.4); Potassium 3.6 mmol/L (3.5-5.1); Sodium 142 mmol/L (136-145)
[2024-01-03 07:45] LABS: Platelet Count 93 10^3/uL (130-400)
--- NOTE | 2024-01-03 08:15 | PGE_ITS ---
Date of Service Date of service: 01/03/24 Time of Service: 08:15 Assessment and Plan Assessment and plan (1) S/P exploratory laparotomy: Status: Acute Assessment and plan: His white count is normal today, and his hemoglobin seems to have plateaued. His abdominal exam is very reassuring, as well as his increase in appetite. Will advance his diet today and transfer him to the floor. I like to see how he does over the next 24 hours, but anticipate discharge home tomorrow morning. Subjective Subjective Interval history since last seen: Santos says he feels great today. He had a few liquid bowel movements last night, but no evidence of any significant bleeding. He says his pain is well- controlled, and he has a pretty significant increase in his appetite over the past few hours. Exam GI Other: His abdomen is soft, and only minimally distended. He is got good bowel sounds. The incisions are clean, and the tammy dressing is fine. Objective Last Vital Signs Temp 100.9 F H 01/03/24 07:45 Pulse 56 L 01/03/24 06:10 Resp 16 01/03/24 06:10 BP 163/72 H 01/03/24 06:10 Pulse Ox 98 01/03/24 06:10 Laboratory Results - last 24 hr 01/02/24 01/03/24 17:58 05:37 WBC 5.45 RBC 3.01 L Hgb 9.2 L 9.1 L Hct 27.3 L 27.0 L MCV 90 MCH 30.2 MCHC 33.7 RDW 13.3 Plt Count 93 L MPV 11.4 H Immature Gran % 0.4 Neutrophils % 62.1 Lymphocytes % 23.7 Monocytes % 9.2 Eosinophils % 3.9 Basophils % 0.7 Nucleated RBC % 0.0 Absolute Neutrophils 3.39 Absolute Lymphocytes 1.29 Absolute Monocytes 0.50 Absolute Eosinophils 0.21 Absolute Basophils 0.04 Sodium 142 Potassium 3.6 Chloride 108 H Carbon Dioxide 27.3 Anion Gap 6.7 BUN 18 Creatinine 1.1 Est GFR (CKD-EPI 2020) 71.77 Glucose 88 Calcium 8.0 L Magnesium 1.5 L Ferritin 878 H Troponin I < 50 PAWSS Have you Been Recently Intoxicated or Drunk Within the Last 30 days?: Yes Have you Ever Experienced Previous Episodes of Alcohol Withdrawal?: No Have you ever Experienced Withdrawal Seizures?: No Have you ever Experienced Delirium Tremens(DT)s?: No Have you ever undergone Alcohol Rehabilitation Treatment (i.e, inpt ot outpatient treatment programs)?: No Have you ever Experienced Blackouts?: No Have you ever Combined Alcohol with other Downers within the last 90 days?: No Have you ever Combined Alcohol with any other Substance of Abuse during the last 90 days?: No Positive Blood Alcohol level on Presentation? [PCS.BAL]: No Evidence of Increased Autonomic Activity (i.e. HR>120, tremor, sweating, agitation, nausea)?: No Result: 1 Time Spent with Patient Time Spent with Patient: 25-34 minutes Time was spent: preparing to see the patient(eg.review tests), indepentently interpreting results and counseling the patient
--- NOTE | 2024-01-03 09:01 | CMPROGNOTE_ITS ---
Date of service: 01/03/24 Time of Service: 09:01 Care Management Progress Note Progress Note Text Progress Note Text: S/O: Santos is closely monitored in the ICU s/p exploratory lap with hemicolectomy and is now MS status. He is sitting in a chair visiting with his when CM met with him. He reports that he feels good other than having intermit episodes of dizziness, nausea and acute difficulty hearing out of his left ear. CM notified RN, Surgical provider also notified. Anticipate Santos will discharge home tomorrow with new [facility] RN if medically ready. A: 73 year old male admitted to [facility] on 12/31/23 with Adenomatous Polyp, now s/p exploratory lap P: Anticipate Santos will return home once medically cleared with New [facility] RN. His will drive him home via private vehicle when ready. He will follow up with his PCP, surgical services, and his discharge plan of care. CM will continue to follow. SDOH(Care Management) Screening Will the Patient Participate in the Screening?: Yes Do you worry about having a steady place to live?: no Problems where you live: no known problems In the past 12 months, have you had to go without electric, gas, oil or water in your home?: no Have you or anyone in your house had to go without enough food to eat?: no Has lack of transportation kept you from medical appointments or from doing things needed for daily living?: no Has anyone in your support network made you feel unsafe for any reason?: no
[2024-01-03] MEDS: Cholecalciferol (Vitamin D3) 1,000 UNIT TAB 2000 UNITS PO (09:06)
[2024-01-03] MEDS: Chlorthalidone 25 MG TAB PO (09:06)
[2024-01-03] MEDS: Losartan 50 MG TAB PO (09:07)
[2024-01-03] MEDS: MAGNESIUM SULFATE 2 GM/50 ML BAG IVINF (17:42)
[2024-01-03] MEDS: Normal Saline Flush 10 ML SYR IV (18:07)
[2024-01-03] MEDS: Normal Saline Flush 10 ML SYR ×2 (18:36→18:37)
[2024-01-04 01:57] VITALS: BP 136/72; PULSE 72; RESP 18; TEMP 36.7; O2SAT 97
[2024-01-04 07:05] LABS: Abs Immature Grans 0.03 10^3/uL (0.0-0.06); Absolute Basophil Count 0.04 10^3/uL (0.0-0.2); Absolute Eosinophil Count 0.37 10^3/uL (0.0-0.7); Absolute Lymphocyte Count 1.68 10^3/uL (1.2-3.4); Absolute Monocyte Count 0.52 10^3/uL (0.1-0.8); Absolute Neutrophil Count 3.36 10^3/uL (1.2-6.7); Basophils % 0.7; Eosinophils % 6.2; HCT 25.5 % (40.0-50.0); HGB 8.9 g/dL (13.5-17.5); Immature Grans % 0.5; MCHC 34.9 % (32.0-36.0); MCV 89 fL (80-95); MPV 11.2 fL (8.0-11.0); Monocytes % 8.7; Neutrophils % 55.9; Platelet Count 118 10^3/uL (130-400); RBC 2.87 10^6/uL (4.36-5.78); RDW-SD 42.3 fL
[2024-01-04 07:21] LABS: C-Reactive Protein 1.36 mg/dL (<or=0.5)
--- NOTE | 2024-01-04 07:47 | DSE_ITS ---
Date of service: 01/04/24 Time of Service: 08:00 DS: Diagnosis Discharge Diagnosis (1) S/P exploratory laparotomy: Status: Acute Discharge Plan Disposition Patient Disposition: Home Condition: Improving Discharge Details Reason For Visit: Adenomatous Polyp Admit Date/Time: 12/31/23 06:02 Admit Provider: Ronnie Sepulveda Attending Provider: Ronnie Sepulveda Primary Care Provider: Taryn Nichole Hospital Course Hospital Course: see addendum Home Meds and New Rx's Prescriptions: New tramadol 50 mg tablet 50 mg PO Q4H PRNQty: 14 0RF Continued chlorthalidone 25 mg tablet 25 mg PO DAILY rosuvastatin 40 mg tablet 40 mg PO DAILY losartan 50 mg tablet 50 mg PO DAILY vitamin [id number] B1 1,000-100 mg/mL solution IM .weekly Held aspirin 81 mg tablet,delayed release (DR/EC) 81 mg PO DAILY Hold Instructions: Resume on 01/17/24. cholecalciferol (vitamin D3) 50 mcg (2,000 unit) capsule 50 mcg PO DAILY Hold Instructions: Resume on 01/17/24. Discontinued polyethylene glycol 3350 17 gram/dose powder 238 g PO ONCE Qty: 238 0RF Rx Instructions: take per colonoscopy instructions bisacodyl [Dulcolax (bisacodyl)] 5 mg tablet,delayed release (DR/EC) 5 mg PO ONCE Qty: 8 0RF Rx Instructions: take per colonoscopy instructions neomycin 500 mg tablet 500 mg PO .COMPLEX Qty: 8 0RF Rx Instructions: 500 mg orally Per bowel surgery instructions; metronidazole 500 mg tablet 500 mg PO .COMPLEX Qty: 8 0RF Rx Instructions: 500 mg orally Per bowel surgery instructions; ondansetron HCl 8 mg tablet 8 mg PO Q12H Qty: 3 0RF Discharge Instructions Additional Instructions: Keep an ice bag on the incision. 20 minutes on and 20 minutes off. Ice keeps the swelling down and swelling causes pain. Make sure you wrap the ice pack in a towel and don't apply directly to the skin. -No driving for 7 days or of you are taking narcotic pain medications. -If you have leela or sutures in place, they will be removed at your clinic appointment in 7-10 days. [facility] Surgery Clinic: [phone] -Follow-up with Dr. Sepulvead in 01/12 10:45am -soft diet: No beef/pork raw vegetables x1 -week. Cooked vegetables are fine -no straining to move bowels -pain meds are very constipating: if you do not move your bowels daily take a dose of OTC Miralax -It is ok to shower. No bathe, soaking, swimming or hot tubs -Keep wound clean and dry. Wash incision with soap and water daily. Pat dry, don't rub. -Protein supplements daily. You may find that your appetite is smaller. Eat 3-6 small meals throughout the day. It is important to drink lots of water after surgery, 6-10 glasses a day. -If you were given an incentive spirometry (breathing water reuse program manager?), continue to do this 10x/hour while awake. -We do want you up walking, at least 5-6 times per day. This is very important to prevent pneumonia and blood clots. You can climb stairs, take them slowly. -No lifting over 5 pounds. This is very important to avoid developing a hernia in your incision. -You may find that you are very tired after surgery- this is normal. -please do not smoke for a minimum of 72 hours after surgery. -No alcohol for 1 week. ? Pain Management Protocol -Tylenol 1000mg every 6 hours.? Tylenol is an anti-inflammatory. -Ibuprofen 600mg every 6hrs prn pain.? Do not take aspirin while taking this medication.? Take this medication w/ food. Do not take on an empty stomach. -Use ice.? This also helps to keep swelling down ?It is important to take these medications to keep the swelling down.? Swelling is what causes pain. -Metamucil daily for bowels/constipation.? Do NOT strain to move your bowels!? This is like lifting 50#'s.? ?OR- Mirlax or Milk of Magnesia, daily to prevent constipation. Gastrointestinal Soft Diet Overview Meats & Meat Substitutes ?? Foods Allowed: Chicken, turkey, fish, tender cuts of beef and pork, ground meats, eggs, creamy nut butters, tofu, skinless hot dogs, sausage patties without whole spices ?? Foods to Avoid : Tough, fibrous meats with gristle, meat with casings (hot dogs, sausage, kielbasa), lunch meats with whole spices, shellfish, beans, chunky peanut butter, nuts Fruits and Juices ?? Foods Allowed: Fruit juices without pulp, banana, avocado, applesauce, canned peaches and pears, cooked fruit without the skin/seeds.? Ground or over- cooked fruits.? Fruits ground finely in a ?smoothie?. ?? Foods to Avoid: Juices with pulp, fresh fruit (except banana and avocado), dried fruits, canned fruit cocktail and pineapple, coconut, frozen/thawed berries Vegetables ?? Foods Allowed: Well-cooked or canned vegetables, potatoes without skin, tomato sauces, vegetable juice ?? Foods to Avoid: Raw vegetables, all corn, all mushrooms, stewed tomatoes, potato skins, stir-walden vegetables, sauerkraut, pickles, olives, all dried beans, peas, and legumes Cereals and Grains ?? Foods Allowed: Low- fiber dry or cooked cereals (less than 2 grams fiber per serving), white rice, pasta, macaroni, or noodles ?? Foods to Avoid: Cereals with nuts, berries, dried fruits, whole grain cereals, bran cereals, granola, brown or wild rice, whole grain pasta Breads and Crackers ?? Foods Allowed: White/refined breads and rolls, plain bagel, toast, plain crackers, felisa crackers ?? Foods to Avoid: Whole grain breads- including white whole grain; bread/ rolls with raisins, nuts or seeds, multi-grain crackers Dairy ?? Foods Allowed: Milk, cheese, yogurt, milkshakes, pudding, ice cream, cottage cheese, sherbet ;?lactose free or low lactose versions if lactose intolerant ?? Foods to Avoid: Dairy product mixed with fresh fruit (except banana), berries, nuts or seeds Desserts ?? Foods Allowed: Plain cake, pudding, custard, ice cream, sherbet, gelatin, fruit whips ?? Foods to Avoid: Any dessert that contains nuts, dried fruits, coconut, or fruits with seeds Herbs and Spices ?? Foods Allowed: All ground spices or herbs, salt ?? Foods to Avoid: Whole spices such as peppercorns, whole cloves, anise seeds, celery seeds, raul, delmy seeds, and fresh herbs Snacks/Other Foods ?? Foods Allowed: Sugar, honey, jelly, mayonnaise, mustard, soy sauce, oil, butter, margarine, marshmallows, cookies without dried fruits or nuts, snack chips and pretzels using refined flours ?? Foods to Avoid: Carbonated beverages, jams or jellies with seeds, popcorn After several weeks, slowly start to reintroduce the ?Foods to Avoid? back into your diet unless your doctor has told you otherwise. Try a small portion of one of these foods each day. If it does not bother you within 24 hours, it can be added to your diet. Continue to add new foods in this way. Some people may continue to have food sensitivities and may need to continue to avoid certain foods. If you cannot tolerate a food, avoid that food for a few weeks before you try it again. Guidelines when eating 1.??? Avoid any food that you cannot tolerate or that causes gas, bloating, or stomach pain. 2.??? Make time for your meals. Do not eat while you are in a hurry. Cut your food into small pieces. Chew each bite to a mashed potato consistency. Do not eat when you cannot concentrate on chewing well. 3.??? Drink at least 6-8 cups of fluid per day? Fluids include: water, coffee, tea, juice, milk, popsicles, soups, gelatin, pudding, ice cream, sherbet, and yogurt. In addition, choose caffeine-free beverages more often, especially if you are having?diarrhea. 4.??? A daily multivitamin may be recommended if diet is limited in amounts or variety of foods. Do not take any herbal supplements without first checking with your doctor. Activity:: see above Equipment/Supplies:: No Equipment Needed Diet:: see above DS: Summary Time Spent with Patient providing and/or coordinating discharge services: Greater than 30 minutes Status at Discharge Functional status at discharge: independent ambulation Overall status at discharge: patient is progressing back to baseline Mental Status: mental status grossly normal Speech and Movement: speech and movement normal Mood: congruent mood Affect: normal affect Quality:SDOH Health Related Social Needs: No Data to Display Referrals and interventions: none needed Exam Psych Mental Status: mental status grossly normal Speech and Movement: speech and movement normal Mood: congruent mood Affect: normal affect DS: Data Vitals/I&O Vitals and I&O: Vital Signs Temperature 36.7 C 01/04/24 01:57 Temperature Source Temporal Artery Scan 01/04/24 01:57 Pulse 72 01/04/24 01:57 Pulse Rhythm Regular 01/04/24 00:06 Pulse 57 L 01/03/24 06:10 Respiratory Rate 18 01/04/24 01:57 Respiratory Effort Normal 01/04/24 00:06 Respiratory Depth Normal 01/04/24 00:06 Respiratory Pattern Normal 01/04/24 00:06 Blood Pressure 136/72 01/04/24 01:57 Blood Pressure Mean 91 01/03/24 18:01 Blood Pressure Position Sitting 01/02/24 15:57 Pulse Oximetry 97 01/04/24 01:57 Respiratory End-tidal CO2 33 12/31/23 13:40 Oxygen Delivery Method Room Air 01/04/24 01:57 Oxygen Flow Rate 0 01/04/24 01:57 Pain Level 0 01/04/24 01:57 Comment OOB to commode to void and have small amt loose stool. 01/04/24 01:57 Arterial Systolic 130 01/02/24 09:00 Arterial Diastolic 57 01/02/24 09:00 Arterial Mean 81 01/02/24 09:00 Intake & Output 01/03/24 01/03/24 01/04/24 11:59 23:59 11:59 Intake Total 220 / 680 460 / 680 Output Total 775 / 1375 600 / 1375 550 / 550 Balance -555 / -695 -140 / -695 -550 / -550 Weight 97 kg 93.4 kg Intake: IV 100 / 200 100 / 200 Oral 120 / 480 360 / 480 Output: Urine 425 / 425 550 / 550 Stool 350 / 950 600 / 950 Other: Urine Color Pale Yellow Urine Appearance Clear Clear Urine Odor None None Comment mixed with stool small amt loose stool mixed in Stool Size Small Moderate Stool Characteristics Liquid Liquid Soft Brown Liquid Voiding Methods Bedside Commode Bedside Commode Data Completed and Pending Labs on day of discharge: Labs from last 24 hours 01/04/24 01/04/24 Unknown 06:11 WBC Cancelled 6.00 RBC Cancelled 2.87 L Hgb Cancelled 8.9 L Hct Cancelled 25.5 L MCV Cancelled 89 MCH Cancelled 31.0 MCHC Cancelled 34.9 RDW Cancelled 13.0 Plt Count Cancelled 118 L MPV Cancelled 11.2 H Immature Gran % 0.5 Neutrophils % 55.9 Lymphocytes % 28.0 Monocytes % 8.7 Eosinophils % 6.2 Basophils % 0.7 Nucleated RBC % 0.0 Absolute Neutrophils 3.36 Absolute Lymphocytes 1.68 Absolute Monocytes 0.52 Absolute Eosinophils 0.37 Absolute Basophils 0.04 C-Reactive Protein 1.36 H PFSH All Active Problems S/P exploratory laparotomy (Acute) Hemorrhage of surgical anastomosis site of digestive tract (Acute) Tubular adenoma (Acute) Snoring (Acute) Essential hypertension (Acute) Hyperlipidemia (Acute) Alcohol abuse (Chronic) Medical History (Updated 01/02/24 @ 15:50 by Gayle Chilel DO) Cobalamin deficiency Vitamin D3 deficiency Positive colorectal cancer screening using Cologuard test (~09/2023) On referral Dizziness and giddiness Dyspnea Surgical History (Updated 01/03/24 @ 08:54 by Mandie Johnson) History of laparotomy (~12/2023) Revision of Ileocolic anastomosis S/P right hemicolectomy History of colonoscopy (~12/2023) Family History (Updated 10/13/23 @ 13:18 by Kya Keene RN, RN) Father Myocardial infarction Mother A-fib Carotid artery stenosis Social History (Updated 10/13/23 @ 13:19 by Kya Keene RN, RN) Smoking/Tobacco Use Status: Current every day Tobacco Type: smokeless tobacco Smoking risk assessment performed?: Yes Alcohol Intake: current Alcohol Intake frequency: 0-2 drinks per day Alcohol type: hard liquor Drug use: Never Substance use type: does not use Details: pt chews tobacco daily- hasn't used since yesterday 12/30/23 in the afternoon. Housing: house Do you feel safe at home: Yes Do you feel safe in your relationship?: Yes Time Spent with Patient Time Spent with Patient: <45 minutes Time was spent: preparing to see the patient(eg.review tests), obtaining and/or reviewing separately otained hiistory, ordering medications,tests, procedures, referring, communicating with other health day care home mother, indepentently interpreting results, counseling the patient and care coordination
[2024-01-04 08:07] VITALS: BP 146/85; PULSE 57; RESP 16; TEMP 36.9; O2SAT 96
[2024-01-04 08:34] VITALS: O2SAT 95
[2024-01-04] MEDS: Chlorthalidone 25 MG TAB PO (08:39)
[2024-01-04] MEDS: Losartan 50 MG TAB PO (08:40)
--- NOTE | 2024-01-04 08:44 | PDOC.CMPRO ---
Date of service: 01/04/24 Time of Service: 08:44 Care Management Progress Note Progress Note Text Progress Note Text: S/O: Santos A: 73 year old male admitted to [facility] on 12/31/23 with Adenomatous Polyp, now s/p exploratory lap P: Anticipate Santos will return home once medically cleared with New [facility] RN. His will drive him home via private vehicle when ready. He will follow up with his PCP, surgical services, and his discharge plan of care. CM will continue to follow. SDOH(Care Management) Screening Will the Patient Participate in the Screening?: Yes Do you worry about having a steady place to live?: no Problems where you live: no known problems In the past 12 months, have you had to go without electric, gas, oil or water in your home?: no Have you or anyone in your house had to go without enough food to eat?: no Has lack of transportation kept you from medical appointments or from doing things needed for daily living?: no Has anyone in your support network made you feel unsafe for any reason?: no
--- NOTE | 2024-01-04 10:00 | DSE_ITS ---
Date of service: 01/04/24 Time of Service: 10:02 DS: Diagnosis Discharge Diagnosis (1) S/P exploratory laparotomy: Status: Acute Discharge Plan Disposition Patient Disposition: Home Condition: Improving Discharge Details Reason For Visit: Adenomatous Polyp Admit Date/Time: 12/31/23 06:02 Admit Provider: Ronnie Sepulveda Attending Provider: Ronnie Sepulveda Primary Care Provider: Lynne Nicholeanna Hospital Course Hospital Course: see addendum Home Meds and New Rx's Prescriptions: New tramadol 50 mg tablet 50 mg PO Q4H PRNQty: 14 0RF Continued chlorthalidone 25 mg tablet 25 mg PO DAILY rosuvastatin 40 mg tablet 40 mg PO DAILY losartan 50 mg tablet 50 mg PO DAILY vitamin S85-lbtrket B1 1,000-100 mg/mL solution IM .weekly Held aspirin 81 mg tablet,delayed release (DR/EC) 81 mg PO DAILY Hold Instructions: Resume on 01/17/24. cholecalciferol (vitamin D3) 50 mcg (2,000 unit) capsule 50 mcg PO DAILY Hold Instructions: Resume on 01/17/24. Discontinued polyethylene glycol 3350 17 gram/dose powder 238 g PO ONCE Qty: 238 0RF Rx Instructions: take per colonoscopy instructions bisacodyl [Dulcolax (bisacodyl)] 5 mg tablet,delayed release (DR/EC) 5 mg PO ONCE Qty: 8 0RF Rx Instructions: take per colonoscopy instructions neomycin 500 mg tablet 500 mg PO .COMPLEX Qty: 8 0RF Rx Instructions: 500 mg orally Per bowel surgery instructions; metronidazole 500 mg tablet 500 mg PO .COMPLEX Qty: 8 0RF Rx Instructions: 500 mg orally Per bowel surgery instructions; ondansetron HCl 8 mg tablet 8 mg PO Q12H Qty: 3 0RF Discharge Instructions Additional Instructions: Keep an ice bag on the incision. 20 minutes on and 20 minutes off. Ice keeps the swelling down and swelling causes pain. Make sure you wrap the ice pack in a towel and don't apply directly to the skin. -No driving for 7 days or of you are taking narcotic pain medications. -Remove PICOs on Wednesday. Cover to shower. [facility] Surgery Clinic: [phone] -Make appt to F/U w/ PCP in 1-2 wks. -Follow-up with Dr. Sepulveda in 01/12 10:45am, Labs prior to the appt. -soft diet: No beef/pork raw vegetables x1 -week. Cooked vegetables are fine -no straining to move bowels -pain meds are very constipating: if you do not move your bowels daily take a dose of OTC Miralax -It is ok to shower after the PICOs dressing is removed. No bathe, soaking, swimming or hot tubs -Keep wound clean and dry. Wash incision with soap and water daily. Pat dry, don't rub. After PICOs dressing is removed. -Protein supplements daily. You may find that your appetite is smaller. Eat 3-6 small meals throughout the day. It is important to drink lots of water after surgery, 6-10 glasses a day. -If you were given an incentive spirometry (breathing game designer/creative director?), continue to do this 10x/hour while awake. -We do want you up walking, at least 5-6 times per day. This is very important to prevent pneumonia and blood clots. You can climb stairs, take them slowly. -No lifting over 5 pounds. This is very important to avoid developing a hernia in your incision. -You may find that you are very tired after surgery- this is normal. -please do not smoke for a minimum of 72 hours after surgery. -No alcohol for 1 week. ? Pain Management Protocol -Tylenol 1000mg every 6 hours.? Tylenol is an anti-inflammatory. -Ibuprofen 600mg every 6hrs prn pain.? Do not take aspirin while taking this medication.? Take this medication w/ food. Do not take on an empty stomach. -Use ice.? This also helps to keep swelling down ?It is important to take these medications to keep the swelling down.? Swelling is what causes pain. -Metamucil daily for bowels/constipation.? Do NOT strain to move your bowels!? This is like lifting 50#'s.? ?OR- Mirlax or Milk of Magnesia, daily to prevent constipation. Gastrointestinal Soft Diet Overview Meats & Meat Substitutes ?? Foods Allowed: Chicken, turkey, fish, tender cuts of beef and pork, ground meats, eggs, creamy nut butters, tofu, skinless hot dogs, sausage patties without whole spices ?? Foods to Avoid : Tough, fibrous meats with gristle, meat with casings (hot dogs, sausage, kielbasa), lunch meats with whole spices, shellfish, beans, chunky peanut butter, nuts Fruits and Juices ?? Foods Allowed: Fruit juices without pulp, banana, avocado, applesauce, canned peaches and pears, cooked fruit without the skin/seeds.? Ground or over- cooked fruits.? Fruits ground finely in a ?smoothie?. ?? Foods to Avoid: Juices with pulp, fresh fruit (except banana and avocado), dried fruits, canned fruit cocktail and pineapple, coconut, frozen/thawed berries Vegetables ?? Foods Allowed: Well-cooked or canned vegetables, potatoes without skin, tomato sauces, vegetable juice ?? Foods to Avoid: Raw vegetables, all corn, all mushrooms, stewed tomatoes, potato skins, stir-walden vegetables, sauerkraut, pickles, olives, all dried beans, peas, and legumes Cereals and Grains ?? Foods Allowed: Low- fiber dry or cooked cereals (less than 2 grams fiber per serving), white rice, pasta, macaroni, or noodles ?? Foods to Avoid: Cereals with nuts, berries, dried fruits, whole grain cereals, bran cereals, granola, brown or wild rice, whole grain pasta Breads and Crackers ?? Foods Allowed: White/refined breads and rolls, plain bagel, toast, plain crackers, felisa crackers ?? Foods to Avoid: Whole grain breads- including white whole grain; bread/ rolls with raisins, nuts or seeds, multi-grain crackers Dairy ?? Foods Allowed: Milk, cheese, yogurt, milkshakes, pudding, ice cream, cottage cheese, sherbet ;?lactose free or low lactose versions if lactose intolerant ?? Foods to Avoid: Dairy product mixed with fresh fruit (except banana), berries, nuts or seeds Desserts ?? Foods Allowed: Plain cake, pudding, custard, ice cream, sherbet, gelatin, fruit whips ?? Foods to Avoid: Any dessert that contains nuts, dried fruits, coconut, or fruits with seeds Herbs and Spices ?? Foods Allowed: All ground spices or herbs, salt ?? Foods to Avoid: Whole spices such as peppercorns, whole cloves, anise seeds, celery seeds, raul, delmy seeds, and fresh herbs Snacks/Other Foods ?? Foods Allowed: Sugar, honey, jelly, mayonnaise, mustard, soy sauce, oil, butter, margarine, marshmallows, cookies without dried fruits or nuts, snack chips and pretzels using refined flours ?? Foods to Avoid: Carbonated beverages, jams or jellies with seeds, popcorn After several weeks, slowly start to reintroduce the ?Foods to Avoid? back into your diet unless your doctor has told you otherwise. Try a small portion of one of these foods each day. If it does not bother you within 24 hours, it can be added to your diet. Continue to add new foods in this way. Some people may continue to have food sensitivities and may need to continue to avoid certain foods. If you cannot tolerate a food, avoid that food for a few weeks before you try it again. Guidelines when eating 1.??? Avoid any food that you cannot tolerate or that causes gas, bloating, or stomach pain. 2.??? Make time for your meals. Do not eat while you are in a hurry. Cut your food into small pieces. Chew each bite to a mashed potato consistency. Do not eat when you cannot concentrate on chewing well. 3.??? Drink at least 6-8 cups of fluid per day? Fluids include: water, coffee, tea, juice, milk, popsicles, soups, gelatin, pudding, ice cream, sherbet, and yogurt. In addition, choose caffeine-free beverages more often, especially if you are having?diarrhea. 4.??? A daily multivitamin may be recommended if diet is limited in amounts or variety of foods. Do not take any herbal supplements without first checking with your doctor. Activity:: see above Equipment/Supplies:: No Equipment Needed Diet:: see above DS: Summary Time Spent with Patient providing and/or coordinating discharge services: Less than 30 minutes Status at Discharge Functional status at discharge: independent ambulation Overall status at discharge: patient is progressing back to baseline Mental Status: mental status grossly normal Speech and Movement: speech and movement normal Mood: congruent mood Affect: normal affect Quality:SDOH Health Related Social Needs: No Data to Display Referrals and interventions: none needed Exam Psych Mental Status: mental status grossly normal Speech and Movement: speech and movement normal Mood: congruent mood Affect: normal affect DS: Data Vitals/I&O Vitals and I&O: Vital Signs Temperature 36.7 C 01/04/24 01:57 Temperature Source Temporal Artery Scan 01/04/24 01:57 Pulse 72 01/04/24 01:57 Pulse Rhythm Regular 01/04/24 08:00 Pulse 57 L 01/03/24 06:10 Respiratory Rate 18 01/04/24 01:57 Respiratory Effort Normal, Non-Labored 01/04/24 08:00 Respiratory Depth Normal 01/04/24 08:00 Respiratory Pattern Normal 01/04/24 08:00 Blood Pressure 136/72 01/04/24 01:57 Blood Pressure Mean 91 01/03/24 18:01 Blood Pressure Position Sitting 01/02/24 15:57 Pulse Oximetry 95 01/04/24 08:34 Respiratory End-tidal CO2 33 12/31/23 13:40 Oxygen Delivery Method Room Air 01/04/24 08:34 Oxygen Flow Rate 0 01/04/24 08:34 Pain Level 0 01/04/24 01:57 Comment OOB to commode to void and have small amt loose stool. 01/04/24 01:57 Arterial Systolic 130 01/02/24 09:00 Arterial Diastolic 57 01/02/24 09:00 Arterial Mean 81 01/02/24 09:00 Intake & Output 01/03/24 01/03/24 01/04/24 11:59 23:59 11:59 Intake Total 220 / 680 460 / 680 240 / 240 Output Total 775 / 1375 600 / 1375 550 / 550 Balance -555 / -695 -140 / -695 -310 / -310 Weight 97 kg 93.4 kg Intake: IV 100 / 200 100 / 200 Oral 120 / 480 360 / 480 240 / 240 Output: Urine 425 / 425 550 / 550 Stool 350 / 950 600 / 950 Other: Urine Color Pale Yellow Urine Appearance Clear Clear Urine Odor None None Comment mixed with stool small amt loose stool mixed in Stool Size Small Moderate Stool Characteristics Liquid Liquid Soft Brown Liquid Voiding Methods Bedside Commode Bedside Commode Data Completed and Pending Labs on day of discharge: Labs from last 24 hours 01/04/24 01/04/24 01/01/24 Unknown 06:11 05:30 WBC Cancelled 6.00 RBC Cancelled 2.87 L Hgb Cancelled 8.9 L Hct Cancelled 25.5 L MCV Cancelled 89 MCH Cancelled 31.0 MCHC Cancelled 34.9 RDW Cancelled 13.0 Plt Count Cancelled 118 L MPV Cancelled 11.2 H Immature Gran % 0.5 Neutrophils % 55.9 Lymphocytes % 28.0 Monocytes % 8.7 Eosinophils % 6.2 Basophils % 0.7 Nucleated RBC % 0.0 Absolute Neutrophils 3.36 Absolute Lymphocytes 1.68 Absolute Monocytes 0.52 Absolute Eosinophils 0.37 Absolute Basophils 0.04 C-Reactive Protein 1.36 H Crossmatch See Detail PFSH All Active Problems S/P exploratory laparotomy (Acute) Hemorrhage of surgical anastomosis site of digestive tract (Acute) Tubular adenoma (Acute) Snoring (Acute) Essential hypertension (Acute) Hyperlipidemia (Acute) Alcohol abuse (Chronic) Medical History (Updated 01/02/24 @ 15:50 by Gayle Chilel DO) Cobalamin deficiency Vitamin D3 deficiency Positive colorectal cancer screening using Cologuard test (~09/2023) On referral Dizziness and giddiness Dyspnea Surgical History (Updated 01/03/24 @ 08:54 by Mandie Johnson) History of laparotomy (~12/2023) Revision of Ileocolic anastomosis S/P right hemicolectomy History of colonoscopy (~12/2023) Family History (Updated 10/13/23 @ 13:18 by Kya Keene RN, RN) Father Myocardial infarction Mother A-fib Carotid artery stenosis Social History (Updated 10/13/23 @ 13:19 by Kya Keene RN, RN) Smoking/Tobacco Use Status: Current every day Tobacco Type: smokeless tobacco Smoking risk assessment performed?: Yes Alcohol Intake: current Alcohol Intake frequency: 0-2 drinks per day Alcohol type: hard liquor Drug use: Never Substance use type: does not use Details: pt chews tobacco daily- hasn't used since yesterday 12/30/23 in the afternoon. Housing: house Do you feel safe at home: Yes Do you feel safe in your relationship?: Yes Time Spent with Patient Time Spent with Patient: <45 minutes Time was spent: preparing to see the patient(eg.review tests), obtaining and/or reviewing separately otained hiistory, ordering medications,tests, procedures, referring, communicating with other health interior plant caretaker, indepentently interpreting results, counseling the patient and care coordination
--- NOTE | 2024-01-04 10:03 | PGE_ITS ---
Date of Service Date of service: 01/04/24 Time of Service: 10:03 Assessment and Plan Assessment and plan (1) Essential hypertension: Status: Acute (2) Hyperlipidemia: Status: Acute (3) Hemorrhage of surgical anastomosis site of digestive tract: Status: Acute (4) S/P exploratory laparotomy: Status: Acute Assessment and plan: pod #4/3 Patient is doing well. We discussed discharge to home including diet/activity/bathing and warning signs. He will leave the tammy's in place until Wednesday and then remove it. He has a follow-up with Dr. Sepulveda on the . He should call for labs prior to this appointment. I do want him to follow-up with his PCP regarding his blood pressure and dizziness. See discharge instructions (5) Tubular adenoma: Status: Acute Subjective Subjective Interval history since last seen: Pt is doing well. no headaches. No CP or SOB. no productive cough. no dysuria. no leg pain or swelling. He has been complaining of dizziness. It does not seem to be related to activity or any medications. He is tolerating a soft diet. He has been moving his bowels with no bleeding. His pain is well-controlled on oral medications. Exam Narrative Exam Narrative: PHYSICAL EXAM GENERAL APPEARANCE: Alert, healthy appearance, oriented, x 3,? in no acute distress Cranial nerves II through XII are intact intact. There is no focal deficits. He has no numbness or weakness in any of his extremities. He is moving all extremities equally with no deficits HYDRATION: Well hydrated HEAD, EYES, EARS, NECK, THROAT: Head is normocephalic, pupils equal, round, reactive to light and accommodation, ocular movement intact, sclera clear and no jaundice. ?Dentition intact. No thrush LUNGS: normal respiration/normal chest excursion. ?Clear to auscultation bilaterally. ?No wheeze. ?HEART: Regular rate and rhythm. no murmurs EXTREMITY: No edema or cyanosis.? no leg pain, redness, swelling.? ABDOMEN: soft and non-tender to palpation.? Normal bowel sounds.? The incision has a tammy in place. There is minimal strikethrough. Objective Last Vital Signs Temp 36.7 C 01/04/24 01:57 Pulse 72 01/04/24 01:57 Resp 18 01/04/24 01:57 BP 136/72 01/04/24 01:57 Pulse Ox 95 04/16/24 08:34 Laboratory Results - last 24 hr 01/01/24 01/04/24 01/04/24 05:30 06:11 Unknown WBC 6.00 Cancelled RBC 2.87 L Cancelled Hgb 8.9 L Cancelled Hct 25.5 L Cancelled MCV 89 Cancelled MCH 31.0 Cancelled MCHC 34.9 Cancelled RDW 13.0 Cancelled Plt Count 118 L Cancelled MPV 11.2 H Cancelled Immature Gran % 0.5 Neutrophils % 55.9 Lymphocytes % 28.0 Monocytes % 8.7 Eosinophils % 6.2 Basophils % 0.7 Nucleated RBC % 0.0 Absolute Neutrophils 3.36 Absolute Lymphocytes 1.68 Absolute Monocytes 0.52 Absolute Eosinophils 0.37 Absolute Basophils 0.04 C-Reactive Protein 1.36 H Crossmatch See Detail PAWSS Have you Been Recently Intoxicated or Drunk Within the Last 30 days?: Yes Have you Ever Experienced Previous Episodes of Alcohol Withdrawal?: No Have you ever Experienced Withdrawal Seizures?: No Have you ever Experienced Delirium Tremens(DT)s?: No Have you ever undergone Alcohol Rehabilitation Treatment (i.e, inpt ot outpatient treatment programs)?: No Have you ever Experienced Blackouts?: No Have you ever Combined Alcohol with other Downers within the last 90 days?: No Have you ever Combined Alcohol with any other Substance of Abuse during the last 90 days?: No Positive Blood Alcohol level on Presentation? [PCS.BAL]: No Evidence of Increased Autonomic Activity (i.e. HR>120, tremor, sweating, agitation, nausea)?: No Result: 1 Time Spent with Patient Time Spent with Patient: 35-49 minutes Time was spent: preparing to see the patient(eg.review tests), obtaining and/or reviewing separately otained hiistory, ordering medications,tests, procedures, referring, communicating with other health attending ambulatory care, indepentently interpreting results, counseling the patient and care coordination
[2024-01-04] MEDS: Bacitracin 1 PACKET (10:25)
--- NOTE | 2024-01-04 10:30 | PDOC.CMDIS ---
Date of service: 01/04/24 Time of Service: 10:30 LACE Index Scoring Tool Questions: Length of Stay (in days): 4 - 6 Was the patient admitted via the E.D.?: No E.D. Visits: 0 Answers: Total Score: 4 Risk of Readmission: Low Risk Care Management Discharge Plan Reason for Hospitalization: Tubular adenoma Discharge Plan: Santos will be discharged to his home with no new services. His daughter will transport him via private vehicle and he will follow up with his PCP, surgical services, and his discharge plan of care. Patient/Family Education Needs: Review discharge instructions and limitations, discussion of self care needs including ask me three. [place] Health Related Social Needs: No Data to Display Referrals and interventions: none needed
[2024-01-04] MEDS: Normal Saline Flush 10 ML SYR (10:55)
== END 2024-01-04 10:30 | disposition home or self-care (01) | DRG 329 ==
LOC: PDS 06:02 → ICU 14:50
PROVIDERS: Nurse Anesthetist, Certified Registered; Surgery; Admitting Provider Surgery; PCP Nurse Practitioner Family; Visit Provider Surgery
PROC: 0DTF4ZZ Resection of Right Large Intestine, Percutaneous Endoscopic Approach (ICD-10-PCS; CPT 44204; principal; 2023-12-31 07:30)
PROC: 0DJD8ZZ Inspection of Lower Intestinal Tract, Via Natural or Artificial Opening Endoscopic (ICD-10-PCS; CPT 45378; principal; 2024-01-01 08:55)
PROC: 0D1B0ZL Bypass Ileum to Transverse Colon, Open Approach (ICD-10-PCS; CPT 49000; 2024-01-01 08:55)
DX: D12.0 Benign neoplasm of cecum (principal); K55.049 Acute infarction of large intestine, extent unspecified; T81.19XA Other postprocedural shock, initial encounter; K91.840 Postprocedural hemorrhage of a digestive system organ or structure following a digestive system procedure; I10 Essential (primary) hypertension; E78.5 Hyperlipidemia, unspecified; R10.10 Upper abdominal pain, unspecified; E55.9 Vitamin D deficiency, unspecified; E53.8 Deficiency of other specified B group vitamins; F17.220 Nicotine dependence, chewing tobacco, uncomplicated; Y83.2 Surgical operation with anastomosis, bypass or graft as the cause of abnormal reaction of the patient, or of later complication, without mention of misadventure at the time of the procedure; Y92.239 Unspecified place in hospital as the place of occurrence of the external cause; R42 Dizziness and giddiness
CPT/HCPCS: 44204; 45378; 44130; 36415; 36430; 80048; 80053; 85027; 86850; 86900; 86901; 86920; J1650; 82310; 82728; 83735; 84484; 85014; 85018; 85025; 85610; 85730; 86140; 88307; 93005; 93010; C9290; J0131; J0665; J0690; J1100; J1170; J1885; J2001; J2405; J2543; J2598; J2704; J3010; J3475; P9016; P9059

== ENCOUNTER 2024-04-10 13:37 | Outpatient (REF) | payer BC, SELFPAY ==
[2024-04-10 17:47] LABS: HCT 38.8 % (40.0-50.0); MCH 30.4 pg (27.0-33.0); MCHC 33.5 % (32.0-36.0); MCV 91 fL (80-95); MPV 11.6 fL (8.0-11.0); Platelet Count 167 10^3/uL (130-400); RBC 4.27 10^6/uL (4.36-5.78); RDW 12.7 % (11.8-14.1); RDW-SD 41.6 fL; WBC 5.04 10^3/uL (4.4-10.8)
[2024-04-10 19:24] LABS: Vitamin B12 339 pg/mL (193-986); Vitamin D 25 Total 25.8 ng/mL (30-100)
== END 2024-04-10 13:38 | disposition home or self-care (01) ==
LOC: NCHCN 13:37
PROVIDERS: PCP Nurse Practitioner Family; Visit Provider Nurse Practitioner Family
DX: D62 Acute posthemorrhagic anemia (principal); E55.9 Vitamin D deficiency, unspecified; E53.8 Deficiency of other specified B group vitamins
CPT/HCPCS: 82306; 85027; 82607

== ENCOUNTER 2025-04-12 16:50 | Outpatient (REF) | payer BC, SELFPAY ==
[2025-04-12 16:00] LABS: Anion Gap 7.6 mmol/L (3-11); BUN 18 mg/dL (7-18); CO2 28.4 mmol/L (21.0-32.0); Calcium 9.0 mg/dL (8.5-10.1); Chloride 100 mmol/L (98-107); Estimated GFR 63.85 (mL/min/1.73m2); Glucose 98 mg/dL (74-106); Potassium 4.7 mmol/L (3.5-5.1); Sodium 136 mmol/L (136-145)
== END 2025-04-12 16:51 | disposition home or self-care (01) ==
LOC: NCHCN 16:50
PROVIDERS: PCP Nurse Practitioner Family; Visit Provider Nurse Practitioner Family
DX: I10 Essential (primary) hypertension (principal)
CPT/HCPCS: 80048